=== PATIENT | male | born 1960 | race Caucasian/White ===

== ENCOUNTER → 2016-12-03 | Outpatient (CLI) | payer BC ==
--- NOTE | 2016-12-03 12:36 | ECHOF ---
Referral Reason:I42.9 Cardiomyopathy, unspecified MEASUREMENTS -------- HEIGHT: 185.4 cm WEIGHT: 95.3 kg BP: 150/99 RVIDd: 3.5 cm (< 3.3) IVSd: 1.5 cm (0.6 - 1.1) LVIDd: 5.2 cm (3.9 - 5.3) LVPWd: 1.4 cm (0.6 - 1.1) IVSs: 1.6 cm LVIDs: 4.2 cm LVPWs: 1.5 cm LA Diam: 4.1 cm (2.7 - 3.8) LAESV Index (A-L): 49.70 ml/m Ao Diam: 3.4 cm (2.0 - 3.7) AV Cusp: 2.5 cm (1.5 - 2.6) MV EXCURSION: 22.213 mm (> 18.000) MV EF SLOPE: 205 mm/s (70 - 150) EPSS: 1.0 cm RAP: 5.00 mmHg RVSP: 21.93 mmHg FINDINGS -------- Atrial fibrillation. This was a technically good study. The left ventricular size is normal. There is moderate concentric left ventricular hypertrophy. Overall left ventricular systolic function is severely impaired with, an EF between 25 - 30 %. The right ventricle is mildly enlarged. LA is severely dilated >40 ml/m2 The right atrium is normal in size. The atrial septal defect shunts from left to right. There is mild aortic valve sclerosis. The mitral valve leaflets are mildly thickened. Mild mitral annular calcification present. Mild mitral regurgitation is present. Mild tricuspid regurgitation present. Right ventricular systolic pressure is normal at < 35 mmHg. Trace/mild (physiologic) pulmonic regurgitation. The aortic root size is normal. The inferior vena cava is mildly dilated. The inferior vena cava is dilated with poor inspiratory collapse which is consistent with estimated right atrial pressure of 20 mmHg. The pericardium is normal. CONCLUSIONS -------- 1. Atrial fibrillation. 2. The mitral valve leaflets are mildly thickened. 3. Mild mitral annular calcification present. 4. Mild mitral regurgitation is present. 5. Mild tricuspid regurgitation present. 6. Right ventricular systolic pressure is normal at < 35 mmHg. 7. Trace/mild (physiologic) pulmonic regurgitation. 8. The aortic root size is normal. 9. The inferior vena cava is mildly dilated. 10. The inferior vena cava is dilated with poor inspiratory collapse which is consistent with estimated right atrial pressure of 20 mmHg. 11. The pericardium is normal. 12. This was a technically good study. 13. The left ventricular size is normal. 14. There is moderate concentric left ventricular hypertrophy. 15. Overall left ventricular systolic function is severely impaired with, an EF between 25 - 30 %. 16. The right ventricle is mildly enlarged. 17. LA is severely dilated >40 ml/m2 18. The atrial septal defect shunts from left to right. 19. There is mild aortic valve sclerosis. W[employer] TANK TENDER: Angeline Cheung RDCS
== END | disposition home or self-care (01) ==
LOC: RADECHMAIN 11:12
PROVIDERS: ATTEND Internal Medicine
DX: I48.91 Unspecified atrial fibrillation (principal); I37.1 Nonrheumatic pulmonary valve insufficiency; I51.7 Cardiomegaly; I35.8 Other nonrheumatic aortic valve disorders; Z95.818 Presence of other cardiac implants and grafts
CPT/HCPCS: 93306

== ENCOUNTER 2017-02-15 13:31 | Observation (INO) | payer BC ==
[2017-02-15] MEDS ORDERED: SODIUM CHLORIDE 0.9% 1,000 ML IV STA (13:48)
[2017-02-15] MEDS ORDERED: SODIUM CHLORIDE 0.9% 500 ML IV STA (13:48)
[2017-02-15 14:04] LABS: Basophils # (A) 0.1 k/uL (0-0.2); Basophils % (A) 1 %; CH 32.1; CHCM 32.5; Eosinophils # (A) 0.2 k/uL (0-0.7); Eosinophils % (A) 3 %; HCT 49.8 % (39.0-53.0); HDW 2.29; HGB 16.7 gm/dL (13.0-17.5); Luc # (Auto) 0.23; Luc % (Auto) 3; Lymphocytes # (A) 2.9 k/uL (1.0-4.8); Lymphocytes % (A) 34 %; MCH 33.3 pg (25.0-35.0); MCHC 33.6 g/dL (31.0-37.0); Monocytes # (A) 0.4 k/uL (0-1.0); Monocytes % (A) 5 %; Neutrophils # (A) 4.7 k/uL (1.3-7.7); Neutrophils % (A) 56 %; RBC 5.03 m/uL (4.30-5.90); RDW 13.2 % (11.5-15.5); WBC 8.5 k/uL (3.8-10.6); WBC (Perox) 8.59
--- NOTE | 2017-02-15 14:09 | ED ---
General Adult HPI - General Chief complaint: Recheck/Abnormal Lab/Rx Stated complaint: BP 160/117 Time Seen by Provider: 02/15/17 13:48 Source: patient, RN notes reviewed, old records reviewed Mode of arrival: wheelchair Limitations: no limitations - History of Present Illness Initial comments: This is a 57-year-old male ER for evaluation of not feeling well and I feel self -conscious about an issue for a couple days now. Patient does have high blood pressure has been re-change in his blood pressure medications and his blood pressure still remains uncontrolled. Patient feels kind of weak, denies any chest pain or significant shortness of breath but occasionally does have some shortness of breath, occasional diaphoresis. Symptoms are worse with significant activity. No fevers no cough congestion or travel history, patient does no friends that have had similar issues lately and has had heart attacks. - Related Data Home Medications Medication Instructions Recorded Confirmed Atorvastatin [Lipitor] 20 mg PO HS 09/09/14 09/13/14 Lisinopril [Prinivil] 20 mg PO HS 09/09/14 09/13/14 Metoprolol Tartrate [Lopressor] 50 mg PO BID 09/09/14 09/13/14 Warfarin [Coumadin] 5 mg PO DAILY 09/09/14 09/09/14 Previous Rx's Medication Instructions Recorded HYDROcodone/APAP 7.5-325MG [Phelan 1 each PO Q4H PRN #60 tab 09/13/14 7.5] Allergies Allergy/AdvReac Type Severity Reaction Status Date / Time amoxicillin Allergy Rash/Hives Verified 02/15/17 13:39 Review of Systems ROS Statement: Those systems with pertinent positive or pertinent negative responses have been documented in the HPI. ROS Other: All systems not noted in ROS Statement are negative. Past Medical History Past Medical History: Atrial Flutter, Hyperlipidemia, Hypertension, Seizure Disorder Additional Past Medical History / Comment(s): EPILEPSY (TOOK DILANTIN, LAST SEIZURE AT ABOUT 12 YR). History of Any Multi-Drug Resistant Organisms: None Reported Past Surgical History: Heart Catheterization, Tonsillectomy Additional Past Surgical History / Comment(s): ORIF RIGHT HIP Past Anesthesia/Blood Transfusion Reactions: No Reported Reaction Past Psychological History: Depression Smoking Status: Current every day smoker Past Alcohol Use History: Occasional Past Drug Use History: None Reported - Past Family History Father Family Medical History: Cancer Additional Family Medical History / Comment(s): COLON Mother Family Medical History: Myocardial Infarction ([place]) General Exam Limitations: no limitations General appearance: alert, in no apparent distress Head exam: Present: atraumatic, normocephalic, normal inspection Eye exam: Present: normal appearance, PERRL, EOMI. Absent: scleral icterus, conjunctival injection, periorbital swelling ENT exam: Present: normal exam, mucous membranes moist Neck exam: Present: normal inspection. Absent: tenderness, meningismus, lymphadenopathy Respiratory exam: Present: normal lung sounds bilaterally. Absent: respiratory distress, wheezes, rales, rhonchi, stridor Cardiovascular Exam: Present: regular rate, normal rhythm, normal heart sounds. Absent: systolic murmur, diastolic murmur, rubs, gallop, clicks GI/Abdominal exam: Present: soft, normal bowel sounds. Absent: distended, tenderness, guarding, rebound, rigid Extremities exam: Present: normal inspection, full ROM, normal capillary refill. Absent: tenderness, pedal edema, joint swelling, calf tenderness Back exam: Present: normal inspection Neurological exam: Present: alert, oriented X3, CN II-XII intact Psychiatric exam: Present: normal affect, normal mood Skin exam: Present: warm, dry, intact, normal color. Absent: rash Course Vital Signs 02/15/17 02/15/17 13:36 13:59 Temperature 98.4 F Pulse Rate 109 H 101 H Respiratory 20 18 Rate Blood Pressure 165/107 158/108 O2 Sat by Pulse 100 96 Oximetry - Reevaluation(s) Reevaluation #1: 02/15/17 14:26 Patient is on Coumadin for A. fib with RVR EKG Findings - EKG Comments: EKG Findings:: EKG shows A. fib with RVR rate of 104, QRS 104, QTC 426 Medical Decision Making - Medical Decision Making 57 [place] for evaluation of not feeling well, concerned for heart attack, patient has high blood pressure, will admit for cardiac observation - Lab Data Result diagrams: 02/15/17 13:55 02/15/17 13:55 Lab Results 02/15/17 02/15/17 02/15/17 Range/Units 13:55 13:55 13:55 WBC 8.5 (3.8-10.6) k/uL RBC 5.03 (4.30-5.90) m/uL Hgb 16.7 (13.0-17.5) gm/dL Hct 49.8 (39.0-53.0) % MCV 99.0 (80.0-100.0) fL MCH 33.3 (25.0-35.0) pg MCHC 33.6 (31.0-37.0) g/dL RDW 13.2 (11.5-15.5) % Plt Count 173 (150-450) k/uL Neutrophils % 56 % Lymphocytes % 34 % Monocytes % 5 % Eosinophils % 3 % Basophils % 1 % Neutrophils # 4.7 (1.3-7.7) k/uL Lymphocytes # 2.9 (1.0-4.8) k/uL Monocytes # 0.4 (0-1.0) k/uL Eosinophils # 0.2 (0-0.7) k/uL Basophils # 0.1 (0-0.2) k/uL PT 29.6 H (9.0-12.0) sec INR 3.1 H (<1.2) APTT 31.4 H (22.0-30.0) sec Sodium 140 (137-145) mmol/L Potassium 4.2 (3.5-5.1) mmol/L Chloride 104 (98-107) mmol/L Carbon Dioxide 26 (22-30) mmol/L Anion Gap 10 mmol/L BUN 10 (9-20) mg/dL Creatinine 0.70 (0.66-1.25) mg/dL Est GFR (MDRD) Af Amer >60 (>60 ml/min/1.73 sqM) Est GFR (MDRD) Non-Af >60 (>60 ml/min/1.73 sqM) Glucose 103 H (74-99) mg/dL Calcium 9.4 (8.4-10.2) mg/dL Phosphorus 3.6 (2.5-4.5) mg/dL Magnesium 1.7 (1.6-2.3) mg/dL Total Bilirubin 0.7 (0.2-1.3) mg/dL AST 32 (17-59) U/L ALT 45 (21-72) U/L Alkaline Phosphatase 76 (38-126) U/L Total Protein 6.4 (6.3-8.2) g/dL Albumin 4.1 (3.5-5.0) g/dL - Radiology Data Radiology results: report reviewed (Chest x-ray is negative for acute disease), image reviewed Critical Care Time Critical Care Time: Yes Total Critical Care Time: 31 Disposition Clinical Impression: Atrial fibrillation with RVR, Chest pain Disposition: [facility] Condition: Fair Referrals: Clayton Benites MD [Primary Care Provider] - 1-2 days
[2017-02-15 14:11] LABS: ALT 45 U/L (21-72); AST 32 U/L (17-59); Alkaline Phosphatase 76 U/L (38-126); Anion Gap 10 mmol/L; Blood Urea Nitrogen 10 mg/dL (9-20); Calcium 9.4 mg/dL (8.4-10.2); Carbon Dioxide 26 mmol/L (22-30); Chloride 104 mmol/L (98-107); Glucose 103 mg/dL (74-99); Magnesium 1.7 mg/dL (1.6-2.3); Non-African American GFR(MDRD) >60 (>60 ml/min/1.73 sqM); Phosphorous 3.6 mg/dL (2.5-4.5); Potassium 4.2 mmol/L (3.5-5.1); Sodium 140 mmol/L (137-145); Total Bilirubin 0.7 mg/dL (0.2-1.3); Total Protein 6.4 g/dL (6.3-8.2)
[2017-02-15 14:14] LABS: INR 3.1 (<1.2); Partial Thromboplastin Time 31.4 sec (22.0-30.0); Prothrombin Time 29.6 sec (9.0-12.0)
[2017-02-15] MEDS ORDERED: ASPIRIN 81 MG PO STA (14:26)
[2017-02-15] MEDS ORDERED: NITROGLYCERIN SL TABS 0.4 MG TAB SUBLINGUAL PRN (14:26)
[2017-02-15 14:30] LABS: Creatine Kinase 75 U/L (55-170)
--- NOTE | 2017-02-15 14:35 | XR ---
EXAMINATION TYPE: XR chest 2V DATE OF EXAM: 02/15/2017 COMPARISON: Prior chest x-ray 08/02/2012 HISTORY: Weakness, hypertension TECHNIQUE: Frontal and lateral views of the chest are obtained on 3 images. FINDINGS: There is no focal air space opacity, pleural effusion, or pneumothorax seen. The cardiac silhouette size is within normal limits. There are overlying cardiac leads. There is a spinal curvat ure. Prominent lung volume may be indicative of underlying COPD. The osseous structures are intact. IMPRESSION: No acute cardiopulmonary process.
[2017-02-15 14:43] LABS: Creatine Kinase MB 0.8 ng/mL (0.0-2.4); Troponin I <0.012 ng/mL (0.000-0.034)
[2017-02-15] MEDS ORDERED: amLODIPine 5 MG TAB PO SCH (19:30)
[2017-02-15] MEDS ORDERED: IPRATROPIUM-ALBUTEROL 3 ML NEB INHALATION SCH (20:00)
[2017-02-15 20:09] LABS: Appearance,Urine Clear (Clear); Bilirubin,Urine Negative (Negative); Glucose,Urine (UA) Negative (Negative); Ketones,Urine Negative (Negative); Leukocyte Esterase,Urine Negative (Negative); Nitrite,Urine Negative (Negative); PH, Urine 6.5 (5.0-8.0); Protein,Urine Negative (Negative); Specific Gravity,Urine 1.011 (1.001-1.035); UA Billing (MACRO vs. MICRO) CHEM; Urobilinogen,Urine <2.0 mg/dL (<2.0)
[2017-02-15 20:12] LABS: Creatine Kinase 63 U/L (55-170)
[2017-02-15] MEDS: methylPREDNISolone SOD SUCCI 40 MG/ML 1 ML VIAL IV SCH (20:18)
[2017-02-15] MEDS: LISINOPRIL-HCTZ 20-12.5 MG 1 EACH TAB PO SCH (20:19)
[2017-02-15 20:24] LABS: Creatine Kinase MB 0.8 ng/mL (0.0-2.4); Troponin I <0.012 ng/mL (0.000-0.034)
[2017-02-15] MEDS: BUDESONIDE 1 MG/2 ML NEBU INHALATION SCH (20:51)
[2017-02-15] MEDS: IPRATROPIUM-ALBUTEROL 3 ML NEB INHALATION SCH (20:53)
[2017-02-15] MEDS ORDERED: METOPROLOL TARTRATE 25 MG TAB PO SCH (21:00)
[2017-02-15] MEDS ORDERED: LISINOPRIL 20 MG TAB PO SCH (21:00)
[2017-02-15] MEDS ORDERED: ATORVASTATIN 20 MG TAB PO SCH (21:00)
[2017-02-15] MEDS ORDERED: METOPROLOL TARTRATE 50 MG TAB PO SCH (21:00)
[2017-02-15] MEDS: CARVEDILOL 12.5 MG TAB PO SCH (21:22)
[2017-02-15 23:50] VITALS: RESP 18
[2017-02-16] MEDS: NICOTINE 21MG/24HR PATCH TRANSDERM SCH ×2 (00:50→11:13)
[2017-02-16 02:54] LABS: INR 2.5 (<1.2); Prothrombin Time 23.8 sec (9.0-12.0)
[2017-02-16 03:04] LABS: Cholesterol 127 mg/dL (<200); HDL Cholesterol 63 mg/dL (40-60)
[2017-02-16 03:15] LABS: Creatine Kinase 53 U/L (55-170)
[2017-02-16 03:29] LABS: Creatine Kinase MB 0.8 ng/mL (0.0-2.4); Troponin I <0.012 ng/mL (0.000-0.034)
[2017-02-16] MEDS: methylPREDNISolone SOD SUCCI 40 MG/ML 1 ML VIAL IV SCH (03:59)
--- NOTE | 2017-02-16 07:56 | HP ---
HISTORY AND PHYSICAL DATE OF ADMISSION: February 15, 2017. PRESENTING COMPLAINT: Tired. HISTORY OF PRESENTING COMPLAINT: A very pleasant, 57 -year-old patient of Dr. Benites. Chronic stable medical conditions include hypothyroidism, seizures, history of hypertension also on A. flutter on Coumadin. Presents feeling weak, tired, a bit foggy, tired and run down. Took his blood pressure found blood pressure to be been running high. Decided to come in. The patient easily gets short-winded and gets easily tired. The patient is a smoker. REVIEW OF SYSTEMS: Constitutional: Tired. HEENT none. Respiratory as above. Cardiovascular as above. Gastroenterology: None. Genitourinary: None. MUSCULOSKELETAL: None. Dermatological: None. Hematologic: None. Lymphatics: None. Psychiatry: None. Neurologic: None. PAST HISTORY: Atrial flutter fibrillation, hypertension, hypothyroid, seizures. PAST SURGICAL HISTORY: Cardiac catheterization, tonsillectomy, ORIF on the right hip. 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 Alcohol occasionally. FAMILY HISTORY: Of colon cancer. HOME MEDICATIONS: 1. Coumadin 5 mg q.h.s. 2. Diovan 160 mg p.o. daily. 3. Prinivil 40 mg q.h.s. 4. Vitamin B12 500 mcg p.o. daily, [address] mcg subcu every 30 days. 5. Vitamin D3 2000 units p.o. daily. 6. Coreg 12.5 p.o. b.i.d. 7. Lipitor 20 mg q.h.s. 8. Aspirin 325 p.o. once p.r.n. ALLERGIES: AMOXICILLIN AND PENICILLIN. PHYSICAL EXAMINATION: On examination, temperature 98.4, pulse 109, respirations 20, blood pressure 161/70, pulse ox 100% room air. General appearance sitting up tired appearing. EYES: Pupils equal. Conjunctivae normal. HEENT: Oral cavity normal. Neck: JVD not raised. Mass not palpable. Respiratory: Effort increased. Lungs diminished breath sounds. Prolonged expiration. Cardiovascular heart sounds irregular. No edema. Abdomen is soft, nontender. Liver and spleen not palpable. Lymphatics: No lymphs nodes palpable in the neck and axilla. Psychiatric alert and oriented times three. Mood affect normal. Neurological: Pupils equal. Cranial nerves grossly intact. Power and sensation grossly intact. INVESTIGATIONS: INR 3.1, potassium 4.2. Troponin negative. EKG shows atrial fibrillation, rate 104. Chest x-ray showed prominent pulmonary artery. ASSESSMENT: 1. Persistent atrial fibrillation. Rate slightly uncontrolled may be causing the patient to feel weak. 2. Essential hypertension. Uncontrolled. Present on admission. 3. Chronic obstructive pulmonary disease in a current smoker. 4. Chronic nicotine dependence, patient is a smoker. 5. Atrial flutter fibrillation. 6. Seizure disorder, off any medications. 7. Coumadin monitoring. PLAN: We will increase the patient's Coreg to 25 mg b.i.d. That is both for his blood pressure and rate control. We will add bronchodilators and nebulized steroids, short course of IV steroids. Patient counseled against smoking and given a nicotine patch. Will be followed. Cardiology was consulted. Copy to Dr. Benites. Also the patient is both on DANIEL inhibitor and ARB. Will change the lisinopril hydrochlorothiazide to 20/12.5 twice a day. RABIA the Sherrie. Care was discussed with the patient. Copy to Dr. Benites. MMODL / IJN: [id number] /
[2017-02-16] MEDS ORDERED: ASPIRIN 81 MG PO SCH (09:00)
[2017-02-16] MEDS ORDERED: ASPIRIN 325 MG TAB PO SCH (09:00)
[2017-02-16] MEDS ORDERED: VALSARTAN 160 MG TAB PO SCH (09:00)
[2017-02-16] MEDS: BUDESONIDE 1 MG/2 ML NEBU INHALATION SCH (09:08)
[2017-02-16] MEDS: IPRATROPIUM-ALBUTEROL 3 ML NEB INHALATION SCH ×2 (09:08→12:59)
[2017-02-16] MEDS ORDERED: SPIRONOLACTONE 25 MG TAB PO SCH (10:15)
[2017-02-16] MEDS ORDERED: FUROSEMIDE 10 MG/ML 2 ML VIAL IV ONE (10:30)
[2017-02-16] MEDS: CARVEDILOL 12.5 MG TAB PO SCH (11:13)
[2017-02-16] MEDS: LISINOPRIL-HCTZ 20-12.5 MG 1 EACH TAB PO SCH (11:13)
[2017-02-16 11:40] VITALS: BP 137/77; TEMP 98.5
[2017-02-16] MEDS ORDERED: CYANOCOBALAMIN 500 MCG TAB PO SCH (12:00)
[2017-02-16] MEDS ORDERED: CHOLECALCIFEROL 1,000 UNIT TAB PO SCH (12:00)
[2017-02-16 13:02] VITALS: PULSE 92
--- NOTE | 2017-02-16 13:14 | P.CRDCN ---
History of Present Illness Consult date: 02/16/17 History of present illness: This is a 57-year-old male. Past medical history significant for dyslipidemia, hypertension, nonischemic cardiomyopathy, atrial fibrillation on chronic anticoagulation and seizures. Patient presents with complaints of increased weakness, and dyspnea on exertion, increased fatigue and elevated blood pressure. He saw Dr. Garduno in the office last in September 2013. He states he follows with his PCP Dr. Benites and he adjusts his medications. His last visit with Dr. Garduno he was put on digoxin and metoprolol for rate control. He states they stopped those medications due to intolerance. EKG done shows atrial fibrillation, rate of 104 beats per minute. There is no old EKG for comparison available at this time. CBC was within normal limits, BMP stable, troponins negative x3, pro-BNP 545. Chest x-ray showed no acute cardiopulmonary process, no congestion. Most recent echo dated 12/03/2016 done as an outpatient per Dr. Benites indicates severely impaired LV function with ejection fraction of 25-30%, moderate left ventricular hypertrophy, mildly enlarged right ventricle, severely dilated left atrium, atrial septal defect shunts left to right and mild aortic valve sclerosis. Review of Systems REVIEW OF SYSTEMS: Patient denies any chest discomfort. No shortness of breath. No diaphoresis. Denies headache, dizziness, blurred vision, double vision. Complains of dyspnea on exertion. Patient denies any stomach discomfort. No nausea, vomiting. No hematochezia. No hematemesis. Denies any black stools or blood in his stools. No syncope. No palpitations. No cough. No recent fever or chills. No muscle weakness or numbness. Past Medical History Past Medical History: Atrial Flutter, Hyperlipidemia, Hypertension, Osteoarthritis (OA), Seizure Disorder Additional Past Medical History / Comment(s): EPILEPSY (TOOK DILANTIN, LAST SEIZURE 40 YERS AGO. DIVERTICULITIS, "IRREGULARTIY TO BOWELS", UPPER FRONT BRIDGE. "OCC HEADACHES" History of Any Multi-Drug Resistant Organisms: None Reported Past Surgical History: Heart Catheterization, Tonsillectomy Additional Past Surgical History / Comment(s): ORIF RIGHT HIP, COLONOSCOPY, HEMORROIDECTOMY, SX FOR UNDESCENDED TESTICLE. Past Anesthesia/Blood Transfusion Reactions: No Reported Reaction Smoking Status: Current every day smoker - Past Family History Father Family Medical History: Cancer Additional Family Medical History / Comment(s): COLON Mother Family Medical History: Myocardial Infarction ([place]) Medications and Allergies Home Medications Medication Instructions Recorded Confirmed Type Atorvastatin [Lipitor] 20 mg PO HS 09/09/14 02/15/17 History Lisinopril [Prinivil] 20 mg PO HS 09/09/14 02/15/17 History Warfarin [Coumadin] 5 mg PO HS 09/09/14 02/15/17 History Aspirin 325 mg PO ONCE PRN 02/15/17 02/15/17 History Carvedilol [Coreg] 12.5 mg PO BID 02/15/17 02/15/17 History Cholecalciferol (Vitamin D3) 2,000 unit PO DAILY 02/15/17 02/15/17 History [Vitamin D3] Cyanocobalamin [Vitamin B-12 1,000 mcg SQ Q30D 02/15/17 02/15/17 History Injection] Cyanocobalamin [Vitamin B-12] 500 mcg PO DAILY 02/15/17 02/15/17 History Valsartan [Diovan] 160 mg PO DAILY 02/15/17 02/15/17 History Allergies Allergy/AdvReac Type Severity Reaction Status Date / Time amoxicillin Allergy Rash/Hives Verified 02/15/17 20:17 Penicillins Allergy Rash/Hives Verified 02/15/17 20:17 Physical Exam Vitals: Vital Signs Temp Pulse Pulse Pulse Resp BP BP 02/16/17 07:56 97.5 F L 72 18 02/16/17 03:49 98.5 F 96 18 119/86 02/15/17 23:49 98.7 F 74 18 131/85 02/15/17 21:05 80 02/15/17 20:53 81 02/15/17 20:10 95 17 02/15/17 19:49 98.9 F 74 18 145/93 02/15/17 16:00 14 02/15/17 15:07 98.5 F 86 18 146/98 02/15/17 14:51 90 02/15/17 14:45 92 18 160/92 02/15/17 13:59 101 H 18 158/108 02/15/17 13:36 98.4 F 109 H 20 165/107 BP Pulse Ox 02/16/17 07:56 130/83 94 L 02/16/17 03:49 94 L 02/15/17 23:49 99 02/15/17 21:05 02/15/17 20:53 02/15/17 20:10 02/15/17 19:49 95 02/15/17 16:00 02/15/17 15:07 95 02/15/17 14:51 02/15/17 14:45 95 02/15/17 13:59 96 02/15/17 13:36 100 Intake and Output 02/15/17 02/16/17 02/16/17 22:59 06:59 14:59 Intake Total 360 Balance 360 Intake: Oral 360 Other: Voiding Method Toilet GENERAL: This is a 57-year-old pleasant male in no apparent distress at the time of my examination. HEENT: Head is atraumatic, normocephalic. Pupils are equal, round. Sclerae anicteric. Conjunctivae are clear. Mucous membranes of the mouth are moist. Neck is supple. There is moderate jugular venous distention. No carotid bruit is heard. LUNGS: Faint rales bibasilar. No wheezes or rhonchi. No chest wall tenderness is noted on palpation or with deep breathing. HEART: Regular rate and rhythm without murmurs, rubs or gallops. S1 and S2 heard. ABDOMEN: Soft, nontender. Bowel sounds are heard. No organomegaly noted. EXTREMITIES: 2+ peripheral pulses with no evidence of peripheral edema and no calf tenderness noted. NEUROLOGIC: Patient is awake, alert and oriented x3. Results 02/15/17 13:55 02/15/17 13:55 Cardiac Enzymes 02/15/17 02/15/17 02/15/17 Range/Units 13:55 13:55 19:42 AST 32 (17-59) U/L CK-MB (CK-2) 0.8 0.8 (0.0-2.4) ng/mL Troponin I <0.012 <0.012 (0.000-0.034) ng/mL 02/16/17 Range/Units 02:19 AST (17-59) U/L CK-MB (CK-2) 0.8 (0.0-2.4) ng/mL Troponin I <0.012 (0.000-0.034) ng/mL Coagulation 02/15/17 02/16/17 Range/Units 13:55 02:19 PT 29.6 H 23.8 H (9.0-12.0) sec APTT 31.4 H (22.0-30.0) sec Lipids 02/16/17 Range/Units 02:19 Triglycerides 62 (<150) mg/dL Cholesterol 127 (<200) mg/dL HDL Cholesterol 63 H (40-60) mg/dL CBC 02/15/17 Range/Units 13:55 WBC 8.5 (3.8-10.6) k/uL RBC 5.03 (4.30-5.90) m/uL Hgb 16.7 (13.0-17.5) gm/dL Hct 49.8 (39.0-53.0) % Plt Count 173 (150-450) k/uL Comprehensive Metabolic Panel 02/15/17 Range/Units 13:55 Sodium 140 (137-145) mmol/L Potassium 4.2 (3.5-5.1) mmol/L Chloride 104 (98-107) mmol/L Carbon Dioxide 26 (22-30) mmol/L BUN 10 (9-20) mg/dL Creatinine 0.70 (0.66-1.25) mg/dL Glucose 103 H (74-99) mg/dL Calcium 9.4 (8.4-10.2) mg/dL AST 32 (17-59) U/L ALT 45 (21-72) U/L Alkaline Phosphatase 76 (38-126) U/L Total Protein 6.4 (6.3-8.2) g/dL Albumin 4.1 (3.5-5.0) g/dL Current Medications Generic Name Dose Route Start Last Admin Trade Name Freq PRN Reason Stop Dose Admin Albuterol/Ipratropium 3 ml 02/15/17 20:00 02/15/17 20:53 Duoneb 0.5 Mg-3 Mg/3 Ml Soln INHALATION 3 ml RT-QID LIEN Administration Aspirin 81 mg 02/16/17 09:00 Aspirin PO DAILY [facility] Atorvastatin Calcium 20 mg 02/15/17 21:00 02/15/17 20:23 Lipitor PO 20 mg HS LIEN Administration Budesonide 1 mg 02/15/17 20:00 02/15/17 20:51 Pulmicort INHALATION 1 mg RT-BID LIEN Administration Carvedilol 25 mg 02/15/17 19:45 02/15/17 21:22 Coreg PO 25 mg BID-W/MEALS LIEN Administration Cholecalciferol 2,000 unit 02/16/17 12:00 Vitamin D3 PO 1200 LIEN Cyanocobalamin 500 mcg 02/16/17 12:00 Vitamin B-12 PO 1200 LIEN Lisinopril/HCTZ 1 each 02/15/17 21:00 02/15/17 20:19 Zestoretic 20-12.5 PO 1 each BID LIEN Administration Methylprednisolone Sodium Succinate 40 mg 02/15/17 20:00 02/16/17 03:59 Solu-Medrol IV 40 mg Q8H LIEN Administration Nicotine 1 patch 02/15/17 19:15 02/16/17 00:50 Habitrol 21mg/24hr Patch TRANSDERM Not Given DAILY [facility] Nitroglycerin 0.4 mg 02/15/17 14:26 Nitrostat SUBLINGUAL Q5M PRN Chest Pain Warfarin Sodium 5 mg 02/16/17 21:00 Coumadin PO HS LIEN Intake and Output 02/15/17 02/16/17 02/16/17 22:59 06:59 14:59 Intake Total 360 Balance 360 Intake: Oral 360 Other: Voiding Method Toilet 02/15/17 13:55 02/15/17 13:55 EKG Interpretations (text) EKG indicated atrial fibrillation. Assessment and Plan Plan: ASSESSMENT 1. 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 Non-ischemic cardiomyopathy 3. Acute on chronic systolic heart failure 4. Essential hypertension 5. Dyslipidemia 6. Chronic tobacco abuse PLAN Add digoxin 125 mcg PO daily, aldactone 25 mg PO daily and one time dose of lasix 10 mg IVP now. The patient has been updated on the plan of care and he has verbalized understanding. Compliance and follow up is imperative. He is to see Dr. Garduno in the office next week. Smoking cessation has been discussed at length. He is stable for discharge home with addition of these new medications. Thank you kindly for this consultation. Nurse Practitioner note has been reviewed, I agree with a documented findings and plan of care. Patient was seen and examined.
[2017-02-16] MEDS ORDERED: WARFARIN 5 MG TAB PO SCH (21:00)
[2017-02-17] MEDS ORDERED: DIGOXIN 125 MCG TAB PO SCH (09:00)
--- NOTE | 2017-02-17 13:59 | DS ---
DISCHARGE SUMMARY DATE OF ADMISSION: 02/15/2017 DATE OF DISCHARGE: 02/16/2017 FINAL DIAGNOSIS: 1. Persistent atrial fibrillation uncontrolled on admission causing patient to be asymptomatic. 2. Essential hypertension with urgency, present on admission. 3. Chronic obstructive pulmonary disease in a current smoker. 4. Chronic nicotine dependence. Patient is a smoker. 5. Persistent atrial flutter fibrillation both as #1. 6. Seizure disorder, not on any medications. 7. Coumadin monitoring. CONSULTATION: Dr. Mert Barahona from cardiology. HOSPITAL COURSE: This patient presented not feeling well. Found to have elevated blood pressure uncontrolled, atrial flutter fibrillation. Medications were adjusted. The patient's blood pressure was 137/77 at the time of discharge. Heart rate controlled now in the 90s. Patient counseled for smoking. INR is 2.5. Troponin's were negative. LDL is 52. PHYSICAL EXAMINATION: LUNGS: Decreased breath sounds. CARDIOVASCULAR: Heart sounds irregular. DISCHARGE MEDICATIONS: 1. Lipitor 20 mg q.h.s. 2. Coumadin 5 mg p.o. q.h.s. 3. Vitamin D3, 2000 units p.o. daily. 4. Vitamin B12, 1000 mcg subcutaneous every 30 days, and 500 mcg p.o. daily. 5. Ventolin HFA 1 or 2 puffs q.6 p.r.n. 6. Aspirin 81 mg a day. 7. Coreg 25 mg p.o. b.i.d., new dose. 8. Digoxin 125 mcg p.o. daily, new medications. 9. Atrovent HFA 2 puffs q.i.d., new medication. 10.Zestoretic 01/06.5 one tablet p.o. b.i.d., new dose. 11.Nicotine patch. 12.Aldactone 25 mg a day, new medication. Follow up with Dr. Garduno on 02/18/17. Follow up with Dr. Benites in 3 days. MMODL / IJN: [id number] /
== END 2017-02-16 16:05 | disposition home or self-care (01) ==
LOC: EC 13:31 → 3OBS 14:26
PROVIDERS: ADMIT Hospitalist; ATTEND Hospitalist
DX: I48.1 Persistent atrial fibrillation (principal); I48.2 Chronic atrial fibrillation; E78.5 Hyperlipidemia, unspecified; I42.9 Cardiomyopathy, unspecified; I48.92 Unspecified atrial flutter; I11.0 Hypertensive heart disease with heart failure; J44.9 Chronic obstructive pulmonary disease, unspecified; G40.909 Epilepsy, unspecified, not intractable, without status epilepticus; I50.23 Acute on chronic systolic (congestive) heart failure; Z79.01 Long term (current) use of anticoagulants; F17.200 Nicotine dependence, unspecified, uncomplicated; Z79.899 Other long term (current) drug therapy; Z88.0 Allergy status to penicillin; Z82.49 Family history of ischemic heart disease and other diseases of the circulatory system; Z80.0 Family history of malignant neoplasm of digestive organs; R61 Generalized hyperhidrosis; F32.9 Major depressive disorder, single episode, unspecified
CPT/HCPCS: 99291; 96361 ×4; 96374; 96375; 96376; 36415; 94640 ×3; 93005; 83880; 80061; 80053; 82550 ×2; 82553 ×2; 83735; 84100; 84484 ×2; 85025; 85610 ×2; 85730; 81003; 87086; 71020; G0378 ×2; S4990; J1940; J2920 ×2

== ENCOUNTER 2018-06-19 13:24 | Day surgery (SDC) | payer BC, OTHER ==
[2018-06-07 16:16] VITALS: BMI 29.4
[~2018-06-19 13:24] MED LIST: CLINDAMYCIN 600 MG in SODIUM CHLORIDE 0.9% IRRIGATIO 250 ML IRRIGATION ONE; CLINDAMYCIN 900 MG in DEXTROSE 5% IN WATER 50 ML IVPB ONE; LACTATED RINGERS 1,000 ML IV SCH; LIDOCAINE 1% 20 ML VIAL (10MG/ML) FOR IV START INTRADERMA PRN; SODIUM CHLORIDE 0.9% 1,000 ML IV SCH
[2018-06-19 15:21] LABS: Basophils % (A) 0 %; Eosinophils # (A) 0.3 k/uL (0-0.7); Eosinophils % (A) 4 %; HCT 45.3 % (39.0-53.0); Lymphocytes # (A) 2.5 k/uL (1.0-4.8); Lymphocytes % (A) 37 %; MCHC 33.2 g/dL (31.0-37.0); MCV 99.3 fL (80.0-100.0); Monocytes # (A) 0.4 k/uL (0-1.0); Monocytes % (A) 6 %; Neutrophils # (A) 3.4 k/uL (1.3-7.7); Neutrophils % (A) 50 %; Platelet Count 155 k/uL (150-450); RBC 4.56 m/uL (4.30-5.90); RDW 13.1 % (11.5-15.5); WBC 6.8 k/uL (3.8-10.6)
[2018-06-19 15:28] LABS: INR 1.3 (<1.2); Prothrombin Time 13.3 sec (9.0-12.0)
[2018-06-19] MEDS ORDERED: fentaNYL (PF) 50 MCG/ML 2 ML AMP ONE (16:04)
[2018-06-19] MEDS ORDERED: MIDAZOLAM 2 MG/2 ML VIAL ONE (16:04)
[2018-06-19] MEDS ORDERED: IV FLUID CONTINUATION 400 ML IV ONE (16:08)
[2018-06-19] MEDS ORDERED: IOPAMIDOL-250 100ML BTL IV ONE (16:21)
[2018-06-19] MEDS ORDERED: LIDOCAINE 1% INJ 10MG/ML (20 ML MDV) ONE ×2 (16:23)
[2018-06-19] MEDS ORDERED: LIDOCAINE 1% INJ 10MG/ML (20 ML MDV) SQ ONE (16:46)
[2018-06-19] MEDS ORDERED: LACTATED RINGERS 1,000 ML IV ONE (16:54)
[2018-06-19] MEDS ORDERED: ACETAMINOPHEN IV (For NPO) 1,000 MG in EMPTY BAG 1 BAG IVPB ONE (18:06)
[2018-06-19] MEDS ORDERED: ACETAMINOPHEN TAB 325 MG TAB PO PRN (18:06)
[2018-06-19] MEDS ORDERED: IPRATROPIUM 0.5 MG/2.5 ML NEBU INHALATION PRN (18:08)
[2018-06-19] MEDS: ATORVASTATIN 20 MG TAB PO SCH (21:03)
[2018-06-19] MEDS: LOSARTAN 25 MG TAB PO SCH (21:03)
[2018-06-19] MEDS ORDERED: MORPHINE SULFATE 2 MG/ML SYRINGE IV PRN (21:27)
[2018-06-19] MEDS: WARFARIN 5 MG TAB PO SCH (21:28)
[2018-06-19] MEDS ORDERED: LACTATED RINGERS 1,000 ML IV SCH (21:30)
[2018-06-19] MEDS: HYDROcodone/APAP 5-325MG 1 EACH TAB PO PRN (21:31)
[2018-06-19] MEDS: CLINDAMYCIN 900 MG in DEXTROSE 5% IN WATER 50 ML IVPB SCH ×2 (22:53)
[2018-06-19] MEDS ORDERED: CLINDAMYCIN 900 MG in DEXTROSE 5% IN WATER 50 ML IVPB SCH ×2 (23:00)
[2018-06-20] MEDS: SODIUM CHLORIDE 0.9% 1,000 ML IV SCH (00:15)
[2018-06-20] MEDS: CLINDAMYCIN 900 MG in DEXTROSE 5% IN WATER 50 ML IVPB SCH ×6 (04:22→16:09)
[2018-06-20] MEDS: HYDROcodone/APAP 5-325MG 1 EACH TAB PO PRN ×2 (04:35→13:45)
--- NOTE | 2018-06-20 04:38 | PCN ---
PROCEDURE NOTE Dandre Sanz is a 58-year-old male patient who has nonischemic cardiomyopathy with atrial fibrillation with RVR. He has been refractory to rate controlled medications even at high doses. During the day, his heart rates can go up to 200 beats per minute and at night he has severe bradycardia on account of medications. In view of his tachycardia and intermediate cardiomyopathy, permanent pacemaker followed by AV node ablation was advised. DESCRIPTION OF PROCEDURE: The patient was brought to the EP lab in a fasting state. Written informed consent was obtained prior to the procedure. The left shoulder area was prepped and draped as per protocol. 1% lidocaine was used for local anesthesia. A 4 cm incision made parallel to the deltopectoral groove, about 1.5 cm medial to it. The incision was carried down to the level of the pectoralis muscle. A subfascial pocket was made. Hemostasis was assured. The left axillary vein was accessed at 2 separate points under fluoroscopy and via appropriately-sized introducer sheaths were placed in the right heart. Since the patient had cardiomyopathy and a single coil ICD lead, DF1-lead was placed in the RV apex. Current VG protocol was followed. This was later connected to a pacemaker and the DF pin was capped and secured to the underlying pectoralis muscle. This was a Medtronic model #6935, 65 cm in length and serial number [id number]. This was positioned in the RV apex. The R-waves were 10.3 mV. Pacing threshold 0.6 V at 0.5 milliseconds. Pacing impedance of 302 ohms. 10 V test negative. The His bundle lead was placed, His bundle lead was 1st attempted in view of an LV lead. The original plan was either His bundle pacing or LV pacing to avoid 100% RV pacing. The patient's bundle lead was screwed in the His bundle area and excellent thresholds were obtained. Selective pacing was noted at 5 V at 1 millisecond with a narrow QRS of 99 milliseconds. He has an underlying right bundle branch block. Pacing His bundle narrowed to QRS width. At 3.75 V his intrinsic QRS widening to a right bundle branch, incomplete right bundle branch block type with a QRS width of 118 milliseconds and loss of His bundle capture occurred at 0.7 V at 1 millisecond. The leads were then secured to the underlying pectoralis fascia using 2 nonabsorbable sutures. The leads were connected to the new generator. The His bundle lead which is a Medtronic model #3830, 69 cm in length and serial number [id number] was plugged in the atrial port of the dual-chamber pacemaker. The RV lead was plugged to the RV port. This was a Medtronic dual-chamber pacemaker [place] SDR MRI serial number [id number]. The leads and generator were then placed in subfascial pocket. The wound was closed in 3 layers and dressed per protocol. RESULTS: Successful implantation of permanent pacemaker with His bundle and RV apical pacing. The device was programmed to DDDR mode with an AV delay of 80 milliseconds with His bundle lead plugged into the atrial port to maximize His bundle pacing and minimize RV pacing to avoid further cardiomyopathy. PLAN: If his chest x-ray is within normal limits and his thresholds are excellent, then we will proceed with AV junction modification tomorrow for management of atrial fibrillation with RVR and thereafter switch to carvedilol and provide continuous His bundle pacing. Hopefully this will result in improvement in his LV function, which is about 45% ejection fraction at this time. MMODL / IJN: [id number] /
[2018-06-20 07:36] VITALS: RESP 18
--- NOTE | 2018-06-20 07:59 | P.PN ---
Subjective Principal diagnosis: Patient is doing well. He is lying comfortably in bed. No chest discomfort dizziness lightheadedness or palpitations after permanent pacemaker implantation yesterday Vitals are stable blood pressure 118/82 mmHg afebrile 97.5F pulse rate 73 beats a minute at rest irregular Breath sounds are clear no rhonchi no crackles Heart sounds S1 and S2 are normal but irregular Abdomen soft nontender Pacemaker site is healed well his minimal soakage no hematoma Impression Atrial fibrillation with tachybradycardia syndrome refractory to drug therapy Permanent pacemaker implanted yesterday with His bundle pacing with the future plan of AV junction modification for management of atrial fibrillation Continue anticoagulation Objective - Vital Signs Vital signs: Vital Signs Temp 97.5 F L 06/20/18 07:35 Pulse 73 06/20/18 07:35 Resp 18 06/20/18 07:35 BP 118/82 06/20/18 07:35 Pulse Ox 92 L 06/20/18 07:35 Intake & Output 06/19/18 06/20/18 06/20/18 18:59 06:59 18:59 Intake Total 556 Balance 556 Weight 101.151 kg Intake: IV 556 Other: Voiding Method Toilet # Voids 2 - Labs CBC & Chem 7: 06/19/18 15:17 Labs: Abnormal Lab Results - Last 24 Hours (Table) 06/19/18 Range/Units 14:59 PT 13.3 H (9.0-12.0) sec INR 1.3 H (<1.2)
--- NOTE | 2018-06-20 08:52 | XR ---
EXAMINATION TYPE: XR chest 2V DATE OF EXAM: 06/20/2018 COMPARISON: 02/15/2017 HISTORY: 58-year-old male placement check TECHNIQUE: PA and lateral views FINDINGS: Heart upper limits of normal in size. Aorta and pulmonary vasculature within normal limits. There is some strandy atelectasis or scarring at the left lower lung. Some focal patchy density at the right b ase represents superimposition shadow. Left anterior chest wall AICD generator with right atrial and right ventricular leads. No consolidation or sizable effusion otherwise seen. IMPRESSION: 1. Left-sided AICD generator with right atrial and right ventricular leads. 2. Borderline cardiomegaly and suspected underlying COPD. 3. Some focal patchy density at the right base could represent superimposition shadow, atelectasis, o r early infiltrate. Attention on follow-up.
[2018-06-20] MEDS: METOPROLOL TARTRATE 50 MG TAB PO SCH (09:51)
[2018-06-20] MEDS: SPIRONOLACTONE 25 MG TAB PO SCH (09:51)
[2018-06-20] MEDS: ASPIRIN 81 MG PO SCH (09:54)
[2018-06-20] MEDS ORDERED: fentaNYL (PF) 50 MCG/ML 2 ML AMP ONE (12:11)
[2018-06-20] MEDS ORDERED: SODIUM CHLORIDE 0.9% 500 ML 500 ML IV ONE (12:21)
[2018-06-20] MEDS ORDERED: MIDAZOLAM 2 MG/2 ML VIAL IVP ONE (12:21)
[2018-06-20] MEDS ORDERED: fentaNYL (PF) 50 MCG/ML 2 ML AMP IV ONE (12:21)
[2018-06-20] MEDS ORDERED: HEPARIN SODIUM (1,000 UNIT/ML) 1,000 UNIT in SODIUM CHLORIDE 0.9% 1,000 ML IRRIGATION ONE (12:21)
[2018-06-20] MEDS ORDERED: LIDOCAINE 1% INJ 10MG/ML (20 ML MDV) SQ ONE (12:29)
[2018-06-20] MEDS ORDERED: ATROPINE SULFATE 0.1 MG/ML 10ML SYRINGE IV ONE (12:48)
--- NOTE | 2018-06-20 13:10 | P.PCN ---
Preoperative Diagnosis: Procedure: Device interrogation with reprogramming prior to the procedure AV Node Ablation/modification. Device interrogation with reprogramming postprocedure Patient was brought to the EP lab in a fasting state. Written, informed consent was obtained prior to the procedure. Access was obtained, sheath placed in right femoral vein. 1. Preprocedure device interrogation and reprogramming Device interrogation with reprogramming performed. Excellent artery and His bundle pacemaker lead thresholds. Selective pacing and His bundle lead. Rate responsiveness was turned off and the pacing rate was reprogrammed to a backup mode prior to ablation. Tachycardia detections turned off. Lead impedance is documented, sensing and pacing thresholds performed prior to the procedure Backup pacing, VVI 40 bpm 3. AV node ablation A Mapping/Ablation catheter was placed and right-sided AV node radiofrequency ablation/modification was performed. Complete heart block was achieved with occasional junctional escape rhythm above 40 bpm 4. Device programming postprocedure Post ablation, device reprogramming was performed. Base Pacing rate was programmed to 90 bpm. lead impedances and thresholds stable excellent thresholds Patient's device was reprogrammed and the interrogated. RF mode turned on Vascular sheaths were removed at the end of the procedure, hemostasis was assured, the patient was then transferred to recovery room/telemetry in stable condition. Conclusions: Successful ablation of the AV node. Plan: Pacing at 90 bpm for 3 weeks. DDDR 90-110 Telemetry monitoring for 24-48 hours. Continue anticoagulation. Continue cardiac medications Patient tolerated the procedure well without any acute complications Conscious sedation Patient underwent EP procedure under conscious sedation/moderate sedation, monitoring of the level of consciousness and physiologic parameters including but not limited to vital signs and oxygenation. Patient tolerated the procedure well without any acute complications. Start time: 1229 Stop time: 1251
[2018-06-20 15:33] LABS: Appearance,Urine Clear (Clear); Bilirubin,Urine Negative (Negative); Blood,Urine Large (Negative); Color,Urine Yellow; Glucose,Urine (UA) Negative (Negative); Ketones,Urine Negative (Negative); Leukocyte Esterase,Urine Negative (Negative); Mucus,Urine Rare /hpf; Nitrite,Urine Negative (Negative); PH, Urine 6.5 (5.0-8.0); Protein,Urine Trace (Negative); RBC,Urine >182 /hpf (0-5); Specific Gravity,Urine 1.016 (1.001-1.035); Urobilinogen,Urine <2.0 mg/dL (<2.0); WBC,Urine 8 /hpf (0-5)
[2018-06-20] MEDS: BISACODYL 5 MG TABLET.DR PO SCH (16:10)
[2018-06-20] MEDS: LOSARTAN 25 MG TAB PO SCH (21:06)
[2018-06-20] MEDS: ATORVASTATIN 20 MG TAB PO SCH (21:06)
[2018-06-20] MEDS: WARFARIN 5 MG TAB PO SCH (21:06)
[2018-06-21 07:42] VITALS: BP 143/97; PULSE 89; TEMP 97.5
--- NOTE | 2018-06-21 08:21 | P.DS ---
Providers Attending physician: David Garduno Primary care physician: [facility] Course: Dandre is doing well. His belly feels a lot better did he has no tenderness in his abdomen. No chest discomfort dizziness or lightheadedness The pacemaker site is healed well there is no hematoma minimal soakage His groin is healed well there is no hematoma no swelling, minimal tenderness On examination heart sounds S1 and S2 are normal and regular Breath sounds are clear no rhonchi no crackles Abdomen soft nontender No lower extremity edema No JVD Vitals are stable blood pressure 130/86. His mercury afebrile 97 0.6F respirations normal pulse rate 90 beats a minute Impression Nonischemic cardio myopathy Atrial fibrillation with RVR during the daytime during ambulation and significant bradycardia at rest, refractory to high-dose beta blockers Tachybradycardia syndrome Hypertension Status post permanent pacemaker implantation His bundle pacing to avoid RV pacing AV junction modification with a residual junctional rate of 50 beats a minute narrow QRS post modification Suggest Continue all home medications including anticoagulation continue cardio myopathy medications including beta blockers Follow-up in the device clinic in 5 days for a device site check in interrogation Follow-up in the device clinic in 3 weeks for pacemaker re- programming Follow-up with Dr. Reyes in 4 months Post pacemaker instructions given Patient Condition at Discharge: Stable Plan - Discharge Summary Discharge Rx Participant: No New Discharge Prescriptions: No Action Warfarin [Coumadin] 5 mg PO HS Atorvastatin [Lipitor] 20 mg PO HS Cyanocobalamin [Vitamin B-12] 500 mcg PO DAILY Cholecalciferol (Vitamin D3) [Vitamin D3] 2,000 unit PO DAILY Spironolactone [Aldactone] 25 mg PO DAILY #30 tab Albuterol Inhaler [Ventolin Hfa Inhaler] 1 - 2 puff INHALATION Q6HR PRN #1 inhaler PRN Reason: Wheezing Aspirin 81 mg PO DAILY Metoprolol Tartrate [Lopressor] 200 mg PO QAM Losartan [Cozaar] 25 mg PO HS Ipratropium [place] [Atrovent Hfa] 2 puff INHALATION QID PRN PRN Reason: Dyspnea Discharge Medication List Atorvastatin [Lipitor] 20 mg PO HS 09/09/14 [History] Warfarin [Coumadin] 5 mg PO HS 09/09/14 [History] Cholecalciferol (Vitamin D3) [Vitamin D3] 2,000 unit PO DAILY 02/15/17 [History] Cyanocobalamin [Vitamin B-12] 500 mcg PO DAILY 02/15/17 [History] Albuterol Inhaler [Ventolin Hfa Inhaler] 1 - 2 puff INHALATION Q6HR PRN #1 inhaler 02/16/17 [Rx] Aspirin 81 mg PO DAILY 02/16/17 [Rx] Spironolactone [Aldactone] 25 mg PO DAILY #30 tab 02/16/17 [Rx] Ipratropium [place] [Atrovent Hfa] 2 puff INHALATION QID PRN 06/08/18 [History] Losartan [Cozaar] 25 mg PO HS 06/08/18 [History] Metoprolol Tartrate [Lopressor] 200 mg PO QAM 06/08/18 [History] Follow up Appointment(s)/Referral(s): David Garduno MD [STAFF PHYSICIAN] - 1 Week (Device clinic follow-up in 5 days with Marianne specifically. Please make this appointment Device clinic follow-up once again in 3 weeks with Marianne specifically. This appointment has been made by me Follow-up with Dr. Reyes in 3 months) Activity/Diet/Wound Care/Special Instructions: PATIENT EDUCATION MATERIAL Instructions following a heart rhythm device implant. 1. Keep dressing DRY for 5 DAYS. You may cover the area with Saran or Cling Wrap, prior to a shower. 2. The dressing will be removed in the Device Clinic at [facility]. Absorbable sutures were used to close the wound. 3. Avoid raising the left arm above the shoulder level. 4 week restriction 4. Avoid arm movements, like backscratching, rubbing the head, or pulling on a cord. 4 weeks restriction 5. Gentle range of motion movements of the shoulder, closest to the incision should be performed to avoid a frozen shoulder. (Pendulum exercises of the shoulder) 6. The opposite arm may be used freely. 7. Avoid driving for 7 days. 8. Avoid activities such as golfing, swimming, weed whacking, lifting more than 10 pounds weight, bowling, gymnastics and weight training/lifting. (6 weeks restriction) 9. Activities such as wood chopping with an axe, pull-ups in the gymnasium, power lifting, arc-welding, being close to home induction cooktops will always be a problem. 10. Arm sling is only a reminder not to raise the arm above the head. You do not need to keep the arm completely immobilized. Your free to move the arm and use it and for normal activities. In case of any problems, please call [facility], [place], @ [phone], Attention: Device Clinic Device clinic follow-up in 5 days Follow-up with primary tester printed circuit boards in 2-3 months Discharge Disposition: HOME SELF-CARE
[2018-06-21] MEDS: SODIUM CHLORIDE 0.9% 1,000 ML IV SCH (09:27)
[2018-06-21] MEDS: BISACODYL 5 MG TABLET.DR PO SCH (09:27)
[2018-06-21] MEDS: ASPIRIN 81 MG PO SCH (09:27)
[2018-06-21] MEDS: METOPROLOL TARTRATE 50 MG TAB PO SCH (09:27)
[2018-06-21] MEDS: SPIRONOLACTONE 25 MG TAB PO SCH (09:27)
== END 2018-06-21 11:46 | disposition home or self-care (01) ==
LOC: CATHEP 13:24 → 1SOBS 18:04 → CATHEP 06-21 11:46
PROVIDERS: ATTEND Internal Medicine Clinical Cardiac Electrophysiology
DX: I42.8 Other cardiomyopathies (principal); I49.5 Sick sinus syndrome; I48.91 Unspecified atrial fibrillation; Z79.01 Long term (current) use of anticoagulants; Z79.82 Long term (current) use of aspirin; Z79.899 Other long term (current) drug therapy; R06.00 Dyspnea, unspecified
CPT/HCPCS: 94640; 33208; 93650; 85025; 85610; 81001; 71046; C1769 ×5; C1894; C1892; C1730; C1898; C1895; C1893; C1732; C1785; J2250; J2001 ×2; J0461; J3010; J1644; Q9966

== ENCOUNTER → 2018-10-31 | Outpatient (CLI) | payer OTHER | LOC: CPPFTMAIN 10:09 | PROVIDERS: ATTEND Internal Medicine | DX: J43.9 Emphysema, unspecified (principal) | CPT/HCPCS: 94060; 94726; 94729 ==

== ENCOUNTER → 2019-03-06 | Outpatient (CLI) | payer OTHER ==
--- NOTE | 2019-03-06 14:11 | US ---
EXAMINATION TYPE: US venous doppler duplex LE LT DATE OF EXAM: 03/06/2019 1:41 PM COMPARISON: NONE CLINICAL HISTORY: M79.662 pain in left lower leg. SIDE PERFORMED: Left TECHNIQUE: The lower extremity deep venous system is examined utilizing real time linear array sonog lazaro with graded compression, doppler sonography and color-flow sonography. VESSELS IMAGED: External Iliac Vein (EIV) Common Femoral Vein Deep Femoral Vein Greater Saphenous Vein * Femoral Vein Popliteal Vein Small Saphenous Vein * Proximal Calf Veins (* superficial vessels) Grayscale, color doppler, spectral doppler imaging performed of the deep veins of the left lower extr emity. There is normal flow, compressibility, vascular waveforms. Left Leg: Negative for DVT IMPRESSION: No sonographic evidence of deep venous arthrosis within the left lower extremity.
== END | disposition home or self-care (01) ==
LOC: RADUSWWP 13:14
PROVIDERS: ATTEND Internal Medicine
DX: M79.662 Pain in left lower leg (principal)

== ENCOUNTER → 2019-12-10 | Outpatient (CLI) | payer BC ==
--- NOTE | 2019-12-10 15:27 | CT ---
EXAMINATION TYPE: CT abdomen pelvis wo/w con DATE OF EXAM: 12/10/2019 COMPARISON: NONE HISTORY: 59-year-old male Microscopic hematuria, constipation and incomplete emptying. TECHNIQUE: Contiguous axial scanning of the abdomen and pelvis before and after administration of 100 ml Isovue 300 IV contrast. Delayed images through the kidneys and coronal/sagittal reconstructions performed. CT DLP: 1656.6 mGycm Automated exposure control for dose reduction was used. FINDINGS: Right atrial and right ventricular AICD leads. Heart normal size without pericardial effusion. Domina nt strands of atelectasis or scarring in the lower lungs without pleural effusion. No focal liver lesion or biliary ductal dilatation. Portal venous system is patent. Gallbladder, adrenal glands, spleen, and pancreas appear within normal limits. There is a punctate 2 mm nonobstructive right lower pole renal calculus. No dilated small bowel, free fluid, or free air. No mesenteric or retroperitoneal lymphadenopathy. Normal appendix. Oral contrast progressed into the ascending colon. There is moderate stool burden. S igmoid diverticulosis without pericolonic inflammatory change. Redundant sigmoid colon. Mild to moderate atherosclerotic calcifications infrarenal abdominal aorta without aneurysm. Bladder is urine distended.. Prostate gland enlarged at 4.7 cm wide. No abnormal fluid collection in the pelvis or pelvic lymphadenopathy. Bones: Antegrade intramedullary nail of the right hip with hip screw fixation. Moderate degenerative change of both hips. Degenerative changes left SI joint with bony ankylosis. Facet arthropathy great est in the lower lumbar spine. Trace grade 1 retrolisthesis at L2-L3. IMPRESSION: 1. PUNCTATE 2 MM NONOBSTRUCTIVE RIGHT RENAL CALCULUS. NO HYDRONEPHROSIS OR SUSPICIOUS RENAL LESION SE EN. 2. MILD PROSTATOMEGALY AT 4.7 CM WIDE.
== END | disposition home or self-care (01) ==
LOC: RADCTMAIN 13:05
PROVIDERS: ATTEND Internal Medicine
DX: N20.0 Calculus of kidney (principal); N40.0 Benign prostatic hyperplasia without lower urinary tract symptoms
CPT/HCPCS: 74178; Q9967 ×2

== ENCOUNTER → 2020-11-18 | Outpatient (CLI) | payer BC ==
--- NOTE | 2020-11-19 15:36 | CT ---
EXAMINATION TYPE: CT abdomen pelvis wo/w con DATE OF EXAM: 11/18/2020 COMPARISON: 12/10/2019 INDICATION: Abdominal pain, pressure, more on RT side. DLP: 1837.8 mGycm, Automated exposure control for dose reduction was used. CONTRAST: 100 mL of Isovue 300. Study performed with Oral Contrast TECHNIQUE: Axial images were obtained from above the diaphragm to the pubic rami in the axial plane a t 5 mm thick sections. Reconstructed images are reviewed on the computer in the coronal plane. FINDINGS: Limited CT sections are obtained the lung bases. The lung bases are clear. CT ABDOMEN: Liver: Normal Spleen: Normal Pancreas: Normal Adrenal glands: The adrenal glands are normal. Gallbladder: Normal Kidneys: No masses are evident. No hydronephrosis is present. No cysts are present. Punctate 2 mm calcification is at the inferior pole right kidney. No obstruction is evident. Delayed images were ob tained through the kidneys. Kidneys remain unremarkable Aorta: Vascular calcification is within the aorta. Inferior vena cava: Normal. CT PELVIS: Oral contrast extends to the colon. There are loops of bowel lacking oral contrast are incompletely d istended limiting their evaluation. Diverticulosis without acute diverticulitis within the sigmoid co arminda. Appendix: Normal as visualized. Urinary bladder: Normal. Genitourinary structures: Prostate is prominent and contains calcifications. Osseous structures: No suspicious lytic or sclerotic lesions. Right hip prosthesis is present. No acu te fractures are evident. IMPRESSIONS: 1. Nonobstructing 2 mm right inferior pole renal stone. 2. Diverticulosis without acute diverticulitis.
== END | disposition home or self-care (01) ==
LOC: RADCTMAIN 16:20
PROVIDERS: ATTEND Family Medicine
DX: N20.0 Calculus of kidney (principal)
CPT/HCPCS: 74178; Q9967

== ENCOUNTER → 2020-12-30 | Outpatient (CLI) | payer BC ==
--- NOTE | 2020-12-31 07:32 | US ---
EXAMINATION TYPE: US thyroid st tissue head/neck DATE OF EXAM: 12/30/2020 COMPARISON: NONE CLINICAL HISTORY: E04.9 Nontoxic goiter. Pt states fatigue, possible thyroid enlargement on Dr's exam ination GLAND SIZE: Right Lobe: 6.7 x 2.5 x 2.1 cm Overall Parenchyma: homogenous Left Lobe: 6.2 x 3.7 x 3.0 cm Overall Parenchyma: heterogeneous Isthmus Thickness: 0.5 cm NODULES RIGHT: # of nodules measured on right: 2 1. 0.6 X 0.7 x 0.6 cm, mid, solid or almost completely solid, hyperechoic nodule, which is taller t george wide, with smooth margins, without echogenic foci. Prior size: No prior 2. 0.5 X 0.3 x 0.5 cm, upper, mixed cystic and solid, hypoechoic nodule, which is wider than tall, with smooth margins, without echogenic foci. Prior size: No prior LEFT: # of nodules measured on left: 1 1. 3.9 X 2.4 x 3.0 cm, mid, solid or almost completely solid, isoechoic nodule, which is wider than tall, with smooth margins, without echogenic foci. Prior size: No prior Bilateral neck scanned, no evidence of lymphadenopathy. Enlarged thyroid with nodules bilaterally, l eft lobe nodule >1cm IMPRESSION: Bilateral thyroid nodules. 2017 ACR TI-RADS LEVEL: TR-RADS 4 - Moderately Suspicious: Follow if > 1 cm, FNA if > 1.5 cm *Highest TI-RADS level nodule reported
== END | disposition home or self-care (01) ==
LOC: RADUSWWP 15:35
PROVIDERS: ATTEND Family Medicine
DX: E04.2 Nontoxic multinodular goiter (principal)
CPT/HCPCS: 76536

== ENCOUNTER 2021-03-02 11:17 | Inpatient (IN) | payer BC ==
--- NOTE | 2021-03-02 12:15 | ED ---
General Adult HPI - General Chief complaint: Shortness of Breath Stated complaint: sob/right arm tingle Time Seen by Provider: 03/02/21 11:45 Source: patient, family, RN notes reviewed, old records reviewed Mode of arrival: wheelchair Limitations: no limitations - History of Present Illness Initial comments: This is a 61-year-old male with past medical history significant for atrial fibrillation and is on Coumadin. Patient also is a smoker. Patient comes in today stating he is short of breath. Patient states been going on for a couple of years but more recently is gotten worse his cough has gotten worse and he is starting to have productive sputum. Patient states any kind of movement exacerbates the shortness of breath per patient denies chest pain or palpitations. Patient denies any recent fever or chills. Patient denies headache patient denies numbness weakness per patient denies lightheadedness or dizziness. Patient states he got the COVID vaccine. Patient denies any abdominal pain patient denies vomiting or diarrhea. Patient does complain of some swelling in the left leg and some calf tenderness in the left calf - Related Data Home Medications Medication Instructions Recorded Confirmed Losartan [Cozaar] 50 mg PO HS 03/02/21 03/02/21 Metoprolol Succinate (ER) [Toprol 100 mg PO DAILY 03/02/21 03/02/21 Xl] Warfarin Sodium 6 mg PO HS 03/02/21 03/02/21 Previous Rx's Medication Instructions Recorded Spironolactone [Aldactone] 25 mg PO DAILY #30 tab 02/16/17 Allergies Allergy/AdvReac Type Severity Reaction Status Date / Time amoxicillin Allergy Rash/Hives Verified 03/02/21 14:04 Penicillins Allergy Rash/Hives Verified 03/02/21 14:04 Review of Systems ROS Statement: Those systems with pertinent positive or pertinent negative responses have been documented in the HPI. ROS Other: All systems not noted in ROS Statement are negative. Past Medical History Past Medical History: Atrial Flutter, Hyperlipidemia, Hypertension, Osteoarthritis (OA), Seizure Disorder Additional Past Medical History / Comment(s): EPILEPSY (TOOK DILANTIN, LAST SEIZURE 40 YERS AGO) "OCC HEADACHES", intermittent constipation/diarrhea, see Dr Garduno H & P History of Any Multi-Drug Resistant Organisms: None Reported Past Surgical History: Heart Catheterization, Tonsillectomy Additional Past Surgical History / Comment(s): ORIF RIGHT HIP, COLONOSCOPY, HEMORROIDECTOMY, SX FOR UNDESCENDED TESTICLE. Past Anesthesia/Blood Transfusion Reactions: No Reported Reaction Past Psychological History: Depression Smoking Status: Current every day smoker Past Alcohol Use History: Occasional Past Drug Use History: Marijuana - Past Family History Father Family Medical History: Cancer Additional Family Medical History / Comment(s): COLON Mother Family Medical History: Myocardial Infarction ([place]) General Exam - General Exam Comments Initial Comments: GENERAL: Patient is well-developed and well-nourished. Patient is nontoxic and well- hydrated and is in acute distress. ENT: Neck is soft and supple. No significant lymphadenopathy is noted. Oropharynx is clear. Moist mucous membranes. Neck has full range of motion without eliciting any pain. EYES: The sclera were anicteric and conjunctiva were pink and moist. Extraocular movements were intact and pupils were equal round and reactive to light. Eyelids were unremarkable. PULMONARY: Patient has diminished breath sounds and almost no breath sounds in the right base. CARDIOVASCULAR: There is a regular rate and rhythm without any murmurs gallops or rubs. ABDOMEN: Soft and nontender with normal bowel sounds. SKIN: Skin is clear with no lesions or rashes and otherwise unremarkable. NEUROLOGIC: Patient is alert and oriented x3. Cranial nerves II through XII are grossly intact. Motor and sensory are also intact. Normal speech, volume and content. Symmetrical smile. Cerebellar exam grossly intact. MUSCULOSKELETAL: Normal extremities with adequate strength and full range of motion. Patient has slight swelling in the left leg and some left calf tenderness LYMPHATICS: No significant lymphadenopathy is noted PSYCHIATRIC: Normal psychiatric evaluation. Limitations: no limitations Course Vital Signs 03/02/21 03/02/21 03/02/21 11:39 12:06 12:07 Temperature 98.1 F Pulse Rate 67 65 Respiratory 18 18 18 Rate Blood Pressure 148/81 151/82 O2 Sat by Pulse 76 L Oximetry 03/02/21 03/02/21 14:18 14:25 Temperature Pulse Rate 63 60 Respiratory Rate Blood Pressure O2 Sat by Pulse Oximetry Medical Decision Making - Medical Decision Making EKG shows atrial fibrillation 65 bpm QRS 110 QTC is 448 QTC is 465. Patient's EKG shows no ST segment elevation or depression. Patient's chest x-ray shows no acute abnormality. Patient was oximetry about 96% on room air however when he Just walked to the bathroom he was extremely short of breath and did not feel comfortable going home. Patient states she's never been given a nebulizer for home. Patient states he used to have a few inhalers but the cost to much to stop getting them. Patient received albuterol and Solu-Medrol the emergency department but he states it did not help much. I spoke with some physicians they agreed to admit the patient admitted the patient wrote admitting orders. - Lab Data Result diagrams: 03/02/21 12:17 03/02/21 12:17 Lab Results 03/02/21 03/02/21 03/02/21 Range/Units 12:17 12:17 12:17 WBC 7.4 (3.8-10.6) k/uL RBC 5.15 (4.30-5.90) m/uL Hgb 17.1 (13.0-17.5) gm/dL Hct 54.3 H (39.0-53.0) % MCV 105.5 H (80.0-100.0) fL MCH 33.3 (25.0-35.0) pg MCHC 31.6 (31.0-37.0) g/dL RDW 13.8 (11.5-15.5) % Plt Count 153 (150-450) k/uL MPV 7.7 Neutrophils % 69 % Lymphocytes % 21 % Monocytes % 7 % Eosinophils % 1 % Basophils % 1 % Neutrophils # 5.1 (1.3-7.7) k/uL Lymphocytes # 1.6 (1.0-4.8) k/uL Monocytes # 0.5 (0-1.0) k/uL Eosinophils # 0.1 (0-0.7) k/uL Basophils # 0.0 (0-0.2) k/uL Macrocytosis Moderate PT 43.1 H (9.0-12.0) sec INR 4.5 H (<1.2) APTT 36.6 H (22.0-30.0) sec D-Dimer 0.20 (<0.60) mg/L FEU Sample Site ABG pH (7.35-7.45) ABG pCO2 (35-45) mmHg ABG pO2 (83-108) mmHg ABG HCO3 (21-25) mmol/L ABG Total CO2 (19-24) mmol/L ABG O2 Saturation (94-97) % ABG Base Excess mmol/L George Test FiO2 % Sodium (137-145) mmol/L Potassium (3.5-5.1) mmol/L Chloride (98-107) mmol/L Carbon Dioxide (22-30) mmol/L Anion Gap mmol/L BUN (9-20) mg/dL Creatinine (0.66-1.25) mg/dL Est GFR (CKD-EPI)AfAm (>60 ml/min/1.73 sqM) Est GFR (CKD-EPI)NonAf (>60 ml/min/1.73 sqM) Glucose (74-99) mg/dL Plasma Lactic Acid Campbell (0.7-2.0) mmol/L Calcium (8.4-10.2) mg/dL Total Bilirubin (0.2-1.3) mg/dL AST (17-59) U/L ALT (4-49) U/L Alkaline Phosphatase (38-126) U/L Troponin I (0.000-0.034) ng/mL NT-Pro-B Natriuret Pep pg/mL Total Protein (6.3-8.2) g/dL Albumin (3.5-5.0) g/dL Coronavirus (PCR) Not Detected (Not Detectd) 03/02/21 03/02/21 03/02/21 Range/Units 12:17 12:17 12:17 WBC (3.8-10.6) k/uL RBC (4.30-5.90) m/uL Hgb (13.0-17.5) gm/dL Hct (39.0-53.0) % MCV (80.0-100.0) fL MCH (25.0-35.0) pg MCHC (31.0-37.0) g/dL RDW (11.5-15.5) % Plt Count (150-450) k/uL MPV Neutrophils % % Lymphocytes % % Monocytes % % Eosinophils % % Basophils % % Neutrophils # (1.3-7.7) k/uL Lymphocytes # (1.0-4.8) k/uL Monocytes # (0-1.0) k/uL Eosinophils # (0-0.7) k/uL Basophils # (0-0.2) k/uL Macrocytosis PT (9.0-12.0) sec INR (<1.2) APTT (22.0-30.0) sec D-Dimer (<0.60) mg/L FEU Sample Site ABG pH (7.35-7.45) ABG pCO2 (35-45) mmHg ABG pO2 (83-108) mmHg ABG HCO3 (21-25) mmol/L ABG Total CO2 (19-24) mmol/L ABG O2 Saturation (94-97) % ABG Base Excess mmol/L George Test FiO2 % Sodium 138 (137-145) mmol/L Potassium 4.5 (3.5-5.1) mmol/L Chloride 99 (98-107) mmol/L Carbon Dioxide 32 H (22-30) mmol/L Anion Gap 7 mmol/L BUN 7 L (9-20) mg/dL Creatinine 0.58 L (0.66-1.25) mg/dL Est GFR (CKD-EPI)AfAm >90 (>60 ml/min/1.73 sqM) Est GFR (CKD-EPI)NonAf >90 (>60 ml/min/1.73 sqM) Glucose 112 H (74-99) mg/dL Plasma Lactic Acid Campbell 1.1 (0.7-2.0) mmol/L Calcium 9.2 (8.4-10.2) mg/dL Total Bilirubin 1.1 (0.2-1.3) mg/dL AST 25 (17-59) U/L ALT 14 (4-49) U/L Alkaline Phosphatase 78 (38-126) U/L Troponin I <0.012 (0.000-0.034) ng/mL NT-Pro-B Natriuret Pep pg/mL Total Protein 6.5 (6.3-8.2) g/dL Albumin 4.0 (3.5-5.0) g/dL Coronavirus (PCR) (Not Detectd) 03/02/21 03/02/21 Range/Units 12:17 13:09 WBC (3.8-10.6) k/uL RBC (4.30-5.90) m/uL Hgb (13.0-17.5) gm/dL Hct (39.0-53.0) % MCV (80.0-100.0) fL MCH (25.0-35.0) pg MCHC (31.0-37.0) g/dL RDW (11.5-15.5) % Plt Count (150-450) k/uL MPV Neutrophils % % Lymphocytes % % Monocytes % % Eosinophils % % Basophils % % Neutrophils # (1.3-7.7) k/uL Lymphocytes # (1.0-4.8) k/uL Monocytes # (0-1.0) k/uL Eosinophils # (0-0.7) k/uL Basophils # (0-0.2) k/uL Macrocytosis PT (9.0-12.0) sec INR (<1.2) APTT (22.0-30.0) sec D-Dimer (<0.60) mg/L FEU Sample Site rrad ABG pH 7.40 (7.35-7.45) ABG pCO2 55 H (35-45) mmHg ABG pO2 82 L (83-108) mmHg ABG HCO3 34 H (21-25) mmol/L ABG Total CO2 36 H (19-24) mmol/L ABG O2 Saturation 96.6 (94-97) % ABG Base Excess 9.1 mmol/L George Test Yes FiO2 21 % Sodium (137-145) mmol/L Potassium (3.5-5.1) mmol/L Chloride (98-107) mmol/L Carbon Dioxide (22-30) mmol/L Anion Gap mmol/L BUN (9-20) mg/dL Creatinine (0.66-1.25) mg/dL Est GFR (CKD-EPI)AfAm (>60 ml/min/1.73 sqM) Est GFR (CKD-EPI)NonAf (>60 ml/min/1.73 sqM) Glucose (74-99) mg/dL Plasma Lactic Acid Campbell (0.7-2.0) mmol/L Calcium (8.4-10.2) mg/dL Total Bilirubin (0.2-1.3) mg/dL AST (17-59) U/L ALT (4-49) U/L Alkaline Phosphatase (38-126) U/L Troponin I (0.000-0.034) ng/mL NT-Pro-B Natriuret Pep 342 pg/mL Total Protein (6.3-8.2) g/dL Albumin (3.5-5.0) g/dL Coronavirus (PCR) (Not Detectd) Disposition Clinical Impression: Acute exacerbation of chronic obstructive pulmonary disease Disposition: ADMITTED IP TO THIS HOSP Referrals: Darshana Lainez MD [Primary Care Provider] - 1-2 days Time of Disposition: 15:16
[2021-03-02 12:43] LABS: Basophils % (A) 1 %; Eosinophils # (A) 0.1 k/uL (0-0.7); Eosinophils % (A) 1 %; HCT 54.3 % (39.0-53.0); HGB 17.1 gm/dL (13.0-17.5); Lymphocytes # (A) 1.6 k/uL (1.0-4.8); Lymphocytes % (A) 21 %; MCH 33.3 pg (25.0-35.0); MCHC 31.6 g/dL (31.0-37.0); MCV 105.5 fL (80.0-100.0); Macrocytosis Moderate; Mean Platelet Volume 7.7; Monocytes # (A) 0.5 k/uL (0-1.0); Monocytes % (A) 7 %; Neutrophils # (A) 5.1 k/uL (1.3-7.7); Neutrophils % (A) 69 %; Platelet Count 153 k/uL (150-450); RBC 5.15 m/uL (4.30-5.90); RDW 13.8 % (11.5-15.5); WBC 7.4 k/uL (3.8-10.6)
[2021-03-02 12:47] LABS: ALT 14 U/L (4-49); AST 25 U/L (17-59); African American GFR (CKD) >90 (>60 ml/min/1.73 sqM); Alkaline Phosphatase 78 U/L (38-126); Anion Gap 7 mmol/L; Blood Urea Nitrogen 7 mg/dL (9-20); Calcium 9.2 mg/dL (8.4-10.2); Carbon Dioxide 32 mmol/L (22-30); Chloride 99 mmol/L (98-107); Glucose 112 mg/dL (74-99); Non-African American GFR(CKD) >90 (>60 ml/min/1.73 sqM); Potassium 4.5 mmol/L (3.5-5.1); Sodium 138 mmol/L (137-145); Total Bilirubin 1.1 mg/dL (0.2-1.3); Total Protein 6.5 g/dL (6.3-8.2)
[2021-03-02 12:56] LABS: INR 4.5 (<1.2); Partial Thromboplastin Time 36.6 sec (22.0-30.0); Prothrombin Time 43.1 sec (9.0-12.0)
--- NOTE | 2021-03-02 12:57 | XR ---
EXAMINATION TYPE: XR chest 2V DATE OF EXAM: 03/02/2021 COMPARISON: 06/20/2018 HISTORY: Shortness of breath TECHNIQUE: Frontal and lateral views of the chest are obtained. FINDINGS: Scattered senescent parenchymal changes noted. Hyperinflation compatible with COPD. No evidence for infiltrate. No evidence for atelectasis. Heart size is stable. Mediastinal structures are stable and grossly unremarkable. No evidence for hilar prominence. Degenerative changes dorsal spine. IMPRESSION: 1. No evidence for acute pulmonary disease.
[2021-03-02 13:13] LABS: ABG Base Excess 9.1 mmol/L; ABG HCO3 34 mmol/L (21-25); ABG Oxygen Saturation 96.6 % (94-97); ABG PCO2 55 mmHg (35-45); ABG PO2 82 mmHg (83-108); ABG TCO2 36 mmol/L (19-24); Allen Test Performed? Yes
--- NOTE | 2021-03-02 13:36 | US ---
EXAMINATION TYPE: US venous doppler duplex LE LT DATE OF EXAM: 03/02/2021 1:25 PM COMPARISON: US CLINICAL HISTORY: Calf pain and swelling. EC patient with MICHELE and left lower leg swelling x 3 weeks. SIDE PERFORMED: Left TECHNIQUE: The lower extremity deep venous system is examined utilizing real time linear array sonog lazaro with graded compression, doppler sonography and color-flow sonography. VESSELS IMAGED: Common Femoral Vein Deep Femoral Vein Greater Saphenous Vein * Femoral Vein Popliteal Vein Small Saphenous Vein * Proximal Calf Veins (* superficial vessels) Left Leg: Negative for DVT IMPRESSION: No evidence for DVT.
[2021-03-02] MEDS ORDERED: IPRATROPIUM-ALBUTEROL 3 ML NEB INHALATION STA ×2 (14:02→15:26)
[2021-03-02] MEDS ORDERED: methylPREDNISolone SOD SUCCI 125 MG/2 ML VIAL IV STA (14:02)
[2021-03-02] MEDS ORDERED: IPRATROPIUM-ALBUTEROL 3 ML NEB INHALATION PRN (15:18)
--- NOTE | 2021-03-02 17:08 | P.HPIM ---
<Seferino Smyth - Last Filed: 03/02/21 17:49> History of Present Illness H&P Date: 03/02/21 Chief Complaint: Shortness of breath History of Presenting Illness: Patient is a very pleasant 61-year-old male with a past medical history of hypertension, hyperlipidemia, atrial fibrillation on Coumadin and status post pacemaker/defibrillator placement, Long-standing history of encourage use of tobacco products reportedly smoking one pack of cigarettes daily times greater than 40 years.. He presented to the emergency department with reports of shortness of breathAnd was found to be in significant respiratory distress with hypoxia with SpO2 of 76% on room air. Patient was placed on oxygen and given Solu-Medrol 125 mg IVP along with DuoNeb.. ABG revealing patient with compensated respiratory acidosis with pH 7.40, pCO2 55, pO2 82, pCO2 334, total CO2 36, and base of 9.1. Coags revealing supratherapeutic INR at 4.5. CBC and BMP showing no significant abnormalities. BMP positive for hypercarbia with CO2 of 32. Troponin negative at less than 0.012. ProBNP 342. Covid PCR negative. Chest x-ray revealing hyperinflation compatible with COPD, but negative for acute cardiopulmonary process. EKG revealing atrial fibrillation with a controlled ventricular rate of 65 bpm. Venous Doppler left lower extremity negative for DVT. Patient reports progressively worsening shortness of breath over the past couple years but states throughout the past couple weeks things have rapidly worsened and over the past couple days he has been unable to catch his breath and is now occasionally bringing up kaushik or rust-colored sputum. Upon assessment at bedside patient 90% on 4 L O2 via nasal cannula with respirations tachypneic, shallow, and slightly labored. Lungs very tight with diffuse bilateral expiratory wheezes present.. Patient with moderate distress and only able to speak in 2-3 word sentences without gasping for air. He reports receiving both of his Covid 19 vaccinations, stating he received the Moderna vaccination with second vaccination being given back in September 2020. He denies having any recent Infections or exposure to known ill contacts, fevers, chills, headache, lightheadedness, dizziness, chest pain, palpitations, or experiencing any numbness/tingling/weakness in his extremities. Patient does report left lower extremity swelling 2 weeks. He denies previous diagnosis of COPD or previously being seen by a search strategist. Review of systems: Pertinent positives and negatives as discussed in HPI, a complete review of systems was performed and all other systems are negative. Physical exam: Vital signs reviewed and stable. General: Nontoxic, no distress and appears stated age. Derm: Skin warm and dry, normal coloration for ethnicity. Head: Atraumatic, normocephalic and symmetric. Eyes: EOMs intact, no lid lag, and anicteric sclera Mouth: no lip lesions, mucus membranes moist Cardiovascular: regular rate and rhythm with normal S1S2, no murmur, positive posterior tibial pulses bilaterally, and cap refill < 2 seconds. Lungs: Respirations tachypneic, shallow, and slightly labored. Lungs very tight with diffuse bilateral expiratory wheezes present.. Patient with moderate distress and only able to speak in 2-3 word sentences without gasping for air. Patient on 4 L O2 with SpO2 of 90%. Abdominal: soft, nontender to palpation, no guarding, no appreciable organomegaly Ext: ROM intact. No gross muscle atrophy, no contractures. Left lower extremity swelling 1+ pitting edema. Neuro: Speech clear, face symmetrical and CN II-XII grossly intact with no noted focal neuro deficits Psych: Alert and oriented to person, place, time, and situation. Appropriate and pleasant affect. Assessment and Plan of Care: Acute respiratory failure with hypoxia and hypercarbia -ABG revealing patient with compensated respiratory acidosis with pH 7.40, pCO2 55, pO2 82, pCO2 334, total CO2 36, and base of 9.1. -Troponin negative at less than 0.012. ProBNP 342. D-dimer negative. -Covid PCR negative. -Chest x-ray revealing hyperinflation compatible with COPD, but negative for acute cardiopulmonary process. -Oxygenation to be administered and titrated as needed to maintain SPO2 equal to or greater than 92% -Telemetry monitoring. -Continuous Pulse-oximetry -Duonebs Scheduled and as needed for SOB and/or wheezing -Incentive Spirometry -Steroids: Solu-Medrol -Consult to pulmonology -CT PE to be completed Left lower extremity swelling -Venous Doppler left lower extremity negative for DVT. Chronic persistent Atrial fibrillation on anticoagulation with Coumadin status post pacemaker/defibrillator placement -EKG revealing atrial fibrillation with a controlled ventricular rate of 65 bpm. -Supratherapeutic INR of 4.5. -Coumadin being held secondary to supratherapeutic levels, we will resume once INR is less than 3 and pharmacy to dose based on these levels. Hypertension -Monitor vital signs and continue daily medication regimen with losartan and metoprolol. Nicotine dependence -Continue to encourage and educate patient on the benefits of smoking cessation and risks of continued use up to and including . The patient is admitted with an anticipated greater than 2 midnight stay for dai luation of Acute respiratory failure with hypoxia and hypercarbia. CODE STATUS: Full code DVT prophylaxis: Coumadin Discussed with: Patient and RN Anticipated discharge date: Clinical course to determine Anticipated discharge place: Home A total of 45 minutes was spent on the care of this complex patient more than 50% of the time was spent in counseling and care coordination. Past Medical History Past Medical History: Atrial Flutter, Hyperlipidemia, Hypertension, Osteoarthritis (OA), Seizure Disorder Additional Past Medical History / Comment(s): EPILEPSY (TOOK DILANTIN, LAST SEIZURE 40 YERS AGO) "OCC HEADACHES", intermittent constipation/diarrhea, see Dr Garduno H & P History of Any Multi-Drug Resistant Organisms: None Reported Past Surgical History: Heart Catheterization, Tonsillectomy Additional Past Surgical History / Comment(s): ORIF RIGHT HIP, COLONOSCOPY, HEMORROIDECTOMY, SX FOR UNDESCENDED TESTICLE. Past Anesthesia/Blood Transfusion Reactions: No Reported Reaction Past Psychological History: Depression Smoking Status: Current every day smoker Past Alcohol Use History: Occasional Past Drug Use History: Marijuana - Past Family History Father Family Medical History: Cancer Additional Family Medical History / Comment(s): COLON Mother Family Medical History: Myocardial Infarction ([place]) Medications and Allergies Home Medications Medication Instructions Recorded Confirmed Type Spironolactone [Aldactone] 25 mg PO DAILY #30 tab 02/16/17 03/02/21 Rx Losartan [Cozaar] 50 mg PO HS 03/02/21 03/02/21 History Metoprolol Succinate (ER) [Toprol 100 mg PO DAILY 03/02/21 03/02/21 History Xl] Warfarin Sodium 6 mg PO HS 03/02/21 03/02/21 History Allergies Allergy/AdvReac Type Severity Reaction Status Date / Time amoxicillin Allergy Rash/Hives Verified 03/02/21 14:04 Penicillins Allergy Rash/Hives Verified 03/02/21 14:04 Physical Exam Vitals: Vital Signs Temp Pulse Resp BP Pulse Ox 03/02/21 16:24 70 03/02/21 16:00 65 03/02/21 14:25 60 03/02/21 14:18 63 03/02/21 12:07 65 18 151/82 03/02/21 12:06 18 03/02/21 11:39 98.1 F 67 18 148/81 76 L Intake and Output 03/02/21 03/02/21 03/02/21 06:59 14:59 22:59 Other: Weight 99.79 kg Results CBC & Chem 7: 03/02/21 12:17 03/02/21 12:17 Labs: Abnormal Lab Results - Last 24 Hours (Table) 03/02/21 03/02/21 03/02/21 Range/Units 12:17 12:17 12:17 Hct 54.3 H (39.0-53.0) % MCV 105.5 H (80.0-100.0) fL PT 43.1 H (9.0-12.0) sec INR 4.5 H (<1.2) APTT 36.6 H (22.0-30.0) sec ABG pCO2 (35-45) mmHg ABG pO2 (83-108) mmHg ABG HCO3 (21-25) mmol/L ABG Total CO2 (19-24) mmol/L Carbon Dioxide 32 H (22-30) mmol/L BUN 7 L (9-20) mg/dL Creatinine 0.58 L (0.66-1.25) mg/dL Glucose 112 H (74-99) mg/dL 03/02/21 Range/Units 13:09 Hct (39.0-53.0) % MCV (80.0-100.0) fL PT (9.0-12.0) sec INR (<1.2) APTT (22.0-30.0) sec ABG pCO2 55 H (35-45) mmHg ABG pO2 82 L (83-108) mmHg ABG HCO3 34 H (21-25) mmol/L ABG Total CO2 36 H (19-24) mmol/L Carbon Dioxide (22-30) mmol/L BUN (9-20) mg/dL Creatinine (0.66-1.25) mg/dL Glucose (74-99) mg/dL <Terri Garvin A - Last Filed: 03/02/21 18:47> Physical Exam Osteopathic Statement: *. No significant issues noted on an osteopathic structural exam other than those noted in the History and Physical/Consult. Vitals: Vital Signs Temp Pulse Resp BP Pulse Ox 03/02/21 18:36 98.9 F 69 18 140/67 91 L 03/02/21 18:15 69 18 137/73 89 L 03/02/21 16:24 70 03/02/21 16:00 65 03/02/21 14:25 60 03/02/21 14:18 63 03/02/21 12:07 65 18 151/82 03/02/21 12:06 18 03/02/21 11:39 98.1 F 67 18 148/81 76 L Intake and Output 03/02/21 03/02/21 03/02/21 06:59 14:59 22:59 Other: Weight 99.79 kg Results CBC & Chem 7: 03/02/21 12:17 03/02/21 12:17 Labs: Abnormal Lab Results - Last 24 Hours (Table) 03/02/21 03/02/21 03/02/21 Range/Units 12:17 12:17 12:17 Hct 54.3 H (39.0-53.0) % MCV 105.5 H (80.0-100.0) fL PT 43.1 H (9.0-12.0) sec INR 4.5 H (<1.2) APTT 36.6 H (22.0-30.0) sec ABG pCO2 (35-45) mmHg ABG pO2 (83-108) mmHg ABG HCO3 (21-25) mmol/L ABG Total CO2 (19-24) mmol/L Carbon Dioxide 32 H (22-30) mmol/L BUN 7 L (9-20) mg/dL Creatinine 0.58 L (0.66-1.25) mg/dL Glucose 112 H (74-99) mg/dL 03/02/21 Range/Units 13:09 Hct (39.0-53.0) % MCV (80.0-100.0) fL PT (9.0-12.0) sec INR (<1.2) APTT (22.0-30.0) sec ABG pCO2 55 H (35-45) mmHg ABG pO2 82 L (83-108) mmHg ABG HCO3 34 H (21-25) mmol/L ABG Total CO2 36 H (19-24) mmol/L Carbon Dioxide (22-30) mmol/L BUN (9-20) mg/dL Creatinine (0.66-1.25) mg/dL Glucose (74-99) mg/dL Assessment and Plan Assessment: Patient seen and examined independently. Patient was also seen by Seferino Smyth NP and case was discussed. I am in agreement with subjective, physical exam, assessment and plan as written above and amended below. Patient reports that he has a weak heart" 30%". He reports that he has had intermittent lower extremity edema with negative venous Dopplers. He reports that his breathing has slowly been getting worse over time and he probably should have come in earlier, but he could no longer "handle it" today. General: non toxic, no distress, appears at stated age Derm: warm, dry Head: atraumatic, normocephalic, symmetric Eyes: EOMI, no lid lag, anicteric sclera Mouth: no lip lesion, mucus membranes moist Cardiovascular: S1S2 reg, no murmur, positive posterior tibial pulse bilateral, Lungs: Decreased bs bilateral with long exhalation period, no accessory muscle use, + Acessory muscle use, + pursed lip breathing Abdominal: soft, nontender to palpation, no guarding, no appreciable organomegaly Ext: no gross muscle atrophy, trace edema, no contractures Neuro: CN II-XI grossly intact, no focal neuro deficits Psych: Alert, oriented, appropriate affect Thorough record review was performed for the patient. 2017 echocardiogram: Ejection fraction 25-30%, with severely dilated left atrium, an atrial septal defect with shunt from left to right Pulmonary function test 2019: Severe COPD, probable hypoxemia secondary to reduced diffusion capacity, significant in air trapping Patient likely with acute exacerbation of severe COPD on top of systolic cardiomyopathy. Concerns for pulmonary cardiac shunting secondary to severe hypoxemia despite normal chest x-ray. Would repeat echocardiogram to reassess ejection fraction and to see if RVSP has increased indicating secondary pulmonary hypertension which could be related to either left heart failure or severe COPD, reassess patient's atrial septal defect with shunt. Consult pulm. Await CTA to assess for signs of intrinsic lung disease though DLCO likely related to severe emphysema.
[2021-03-02] MEDS ORDERED: WARFARIN 0.5 MG TAB PO ONE (18:00)
[2021-03-02] MEDS: methylPREDNISolone SOD SUCCI 125 MG/2 ML VIAL IV SCH (18:30)
--- NOTE | 2021-03-02 19:24 | CT ---
EXAMINATION TYPE: CT chest angio for PE DATE OF EXAM: 03/02/2021 COMPARISON: Same-day radiographs. HISTORY: Shortness of breath. CT DLP: 514.1 mGycm Automated exposure control for dose reduction was used. CONTRAST: CT Chest for pulmonary embolism performed with with IV Contrast, patient injected with 100 mL of Isov ue 370. FINDINGS: LUNGS: There is small lingula and minimal bilateral lower lobe dependent opacities. No suspicious pul monary nodule. There is no pleural effusion or pneumothorax seen. The tracheobronchial tree is pat ent. There is mild centrilobular emphysema. MEDIASTINUM: There is satisfactory enhancement of the pulmonary artery and its branches, there is no CT evidence for pulmonary embolism. There are no greater than 1 cm hilar or mediastinal lymph nodes. No pericardial effusion is seen. OTHER: No additional significant abnormality is seen. IMPRESSION: No acute PE. Minimal bibasilar dependent opacities, probably atelectasis. Developing infiltrates are better exclud ed clinically. Mild emphysema.
[2021-03-02] MEDS: IPRATROPIUM-ALBUTEROL 3 ML NEB INHALATION SCH (19:27)
[2021-03-02] MEDS: LOSARTAN 50 MG TAB PO SCH (20:11)
[2021-03-02] MEDS: HYDROcodone/APAP 5-325MG 1 EACH TAB PO PRN (22:54)
[2021-03-03] MEDS: methylPREDNISolone SOD SUCCI 125 MG/2 ML VIAL IV SCH ×5 (00:28→23:30)
[2021-03-03] MEDS: IPRATROPIUM-ALBUTEROL 3 ML NEB INHALATION SCH ×7 (00:37→19:43)
[2021-03-03 04:45] LABS: HCT 52.6 % (39.0-53.0); HGB 16.2 gm/dL (13.0-17.5); Hypochromasia Slight; MCHC 30.8 g/dL (31.0-37.0); MCV 107.2 fL (80.0-100.0); Macrocytosis Moderate; Mean Platelet Volume 7.8; Platelet Count 156 k/uL (150-450); RDW 13.7 % (11.5-15.5); WBC 6.6 k/uL (3.8-10.6)
[2021-03-03 04:47] LABS: African American GFR (CKD) >90 (>60 ml/min/1.73 sqM); Anion Gap 6 mmol/L; Blood Urea Nitrogen 9 mg/dL (9-20); Carbon Dioxide 33 mmol/L (22-30); Chloride 97 mmol/L (98-107); Glucose 181 mg/dL (74-99); Magnesium 1.8 mg/dL (1.6-2.3); Non-African American GFR(CKD) >90 (>60 ml/min/1.73 sqM); Sodium 136 mmol/L (137-145)
[2021-03-03 04:55] LABS: INR 3.9 (<1.2); Prothrombin Time 37.7 sec (9.0-12.0)
[2021-03-03] MEDS ORDERED: IPRATROPIUM-ALBUTEROL 3 ML NEB INHALATION PRN (07:34)
[2021-03-03] MEDS: FORMOTEROL FUMARATE 20 MCG/2 ML NEBU INHALATION SCH ×2 (07:38→19:37)
[2021-03-03] MEDS: BUDESONIDE 1 MG/2 ML NEBU INHALATION SCH ×2 (07:38→19:37)
--- NOTE | 2021-03-03 08:06 | P.PN ---
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 He presented to the emergency department with reports of shortness of breath and was found to be in significant respiratory distress with hypoxia with SpO2 of 76% on room air. Patient was placed on oxygen and given Solu-Medrol 125 mg IVP along with DuoNeb.. ABG revealing patient with compensated respiratory acidosis with pH 7.40, pCO2 55, pO2 82, pCO2 334, total CO2 36, and base of 9.1. Coags revealing supratherapeutic INR at 4.5. CBC and BMP showing no significant abnormalities. BMP positive for hypercarbia with CO2 of 32. Troponin negative at less than 0.012. ProBNP 342. Covid PCR negative. Chest x-ray revealing hyperinflation compatible with COPD, but negative for acute cardiopulmonary process. EKG revealing atrial fibrillation with a controlled ventricular rate of 65 bpm. Venous Doppler left lower extremity negative for DVT. Patient reports progressively worsening shortness of breath over the past couple years but states throughout the past couple weeks things have rapidly worsened and over the past couple days he has been unable to catch his breath and is now occasionally bringing up kaushik or rust-colored sputum. Upon assessment at bedside patient 90% on 4 L O2 via nasal cannula with respirations tachypneic, shallow, and slightly labored. Lungs very tight with diffuse bilateral expiratory wheezes present.. Patient with moderate distress and only able to speak in 2-3 word sentences without gasping for air. He reports receiving both of his Covid 19 vaccinations, stating he received the Moderna vaccination with second vaccination being given back in September 2020. He denies having any recent Infections or exposure to known ill contacts, fevers, chills, headache, lightheadedness, dizziness, chest pain, palpitations, or experiencing any numbness/tingling/weakness in his extremities. Patient does report left lower extremity swelling 2 weeks. He denies previous diagnosis of COPD or previously being seen by a radiotelephone operator. However chart review reveals previous PFTs in 2009 showing severe COPD. Patient also had echocardiogram completed in 2017 which revealed a severely impaired ejection fraction of 25-30% with atrial septal defect with left to right shunting. Physical exam: Patient was seen and evaluated at the bedside this morning. He has had noted improvement from yesterday's examination, Respirations are now even, regular, and unlabored. Patient does however To need to have conversational dyspnea as well as diffuse expiratory wheezes bilaterally. Patient reports "a little" improvement in breathing. He denies having any headache, lightheadedness, dizziness, chest pain, palpitations, or experiencing any numbness/tingling/wea kness in his extremities. CTA resulted negative for PE, showing mild centrilobular emphysema with minimal basilar opacities likely atelectasis. Echocardiogram was completed and awaiting results at this time. Vital signs reviewed and stable. General: Nontoxic, no distress and appears stated age. Derm: Skin warm and dry, normal coloration for ethnicity. Head: Atraumatic, normocephalic and symmetric. Eyes: EOMs intact, no lid lag, and anicteric sclera Mouth: no lip lesions, mucus membranes moist Cardiovascular: regular rate and rhythm with normal S1S2, no murmur, positive posterior tibial pulses bilaterally, and cap refill < 2 seconds. Lungs: Respirations even, regular, and unlabored this morning. Lungs with improved air entry noted. Continues with soft diffuse bilateral expiratory wheezes present. Patient continues with conversational dyspnea. Currently on 5L O2 with SPO2 91%. Abdominal: soft, nontender to palpation, no guarding, no appreciable organomegaly Ext: ROM intact. No gross muscle atrophy, no contractures. Left lower extremity swelling 1+ pitting edema. Neuro: Speech clear, face symmetrical and CN II-XII grossly intact with no noted focal neuro deficits Psych: Alert and oriented to person, place, time, and situation. Appropriate and pleasant affect. Assessment and Plan of Care: Acute respiratory failure with hypoxia and hypercarbia Acute COPD exacerbation -ABG revealing patient with compensated respiratory acidosis with pH 7.40, pCO2 55, pO2 82, pCO2 334, total CO2 36, and base of 9.1. -Troponins tended x3 negative at less than 0.012. ProBNP 342. D-dimer negative. -Covid PCR negative. -Chest x-ray revealing hyperinflation compatible with COPD, but negative for acute cardiopulmonary process. -Oxygenation to be administered and titrated as needed to maintain SPO2 equal to or greater than 92% -Telemetry monitoring. -Continuous Pulse-oximetry -Duonebs Scheduled and as needed for SOB and/or wheezing -Incentive Spirometry -Steroids: Solu-Medrol -Consult to pulmonology -Consults cardiology -Repeat echocardiogram -CT PE Negative for Acute process or PE showing mild centrilobular emphysema with minimal basilar opacities likely atelectasis Systolic cardiomyopathy Previous ejection fraction of 25-30% -Repeat echocardiogram -Cardiology consulted for patient's history of EF of 25-30% along with atrioventricular malformation with Left to right shunting Left lower extremity swelling -Venous Doppler left lower extremity negative for DVT. Chronic persistent Atrial fibrillation on anticoagulation with Coumadin status post pacemaker/defibrillator placement -EKG revealing atrial fibrillation with a controlled ventricular rate of 65 bpm. -INR remains supratherapeutic at 3.9 -Coumadin being held secondary to supratherapeutic levels, we will resume once INR is less than 3 and pharmacy to dose based on these levels. Supratherapeutic INR -INR remains supratherapeutic at 3.9 -Coumadin being held secondary to supratherapeutic levels, we will resume once INR is less than 3 and pharmacy to dose based on these levels. Hypertension -Monitor vital signs and continue daily medication regimen with losartan and me toprolol. Nicotine dependence -Continue to encourage and educate patient on the benefits of smoking cessation and risks of continued use up to and including . The patient is admitted with an anticipated greater than 2 midnight stay for evaluation of Acute respiratory failure with hypoxia and hypercarbia. CODE STATUS: Full code DVT prophylaxis: Coumadin Discussed with: Patient and RN Anticipated discharge date: Clinical course to determine Anticipated discharge place: Home A total of 45 minutes was spent on the care of this complex patient more than 50% of the time was spent in counseling and care coordination. Objective - Vital Signs Vital signs: Vital Signs Temp 97.6 F 03/03/21 04:53 Pulse 60 03/03/21 06:25 Resp 18 03/03/21 06:25 BP 122/71 03/03/21 04:53 Pulse Ox 93 L 03/03/21 06:25 Intake & Output 03/02/21 03/03/21 03/03/21 18:59 06:59 18:59 Weight 99.79 kg - Labs CBC & Chem 7: 03/03/21 04:24 03/03/21 04:24 Labs: Abnormal Lab Results - Last 24 Hours (Table) 03/02/21 03/02/21 03/02/21 Range/Units 12:17 12:17 12:17 Hct 54.3 H (39.0-53.0) % MCV 105.5 H (80.0-100.0) fL MCHC (31.0-37.0) g/dL PT 43.1 H (9.0-12.0) sec INR 4.5 H (<1.2) APTT 36.6 H (22.0-30.0) sec ABG pCO2 (35-45) mmHg ABG pO2 (83-108) mmHg ABG HCO3 (21-25) mmol/L ABG Total CO2 (19-24) mmol/L Sodium (137-145) mmol/L Chloride (98-107) mmol/L Carbon Dioxide 32 H (22-30) mmol/L BUN 7 L (9-20) mg/dL Creatinine 0.58 L (0.66-1.25) mg/dL Glucose 112 H (74-99) mg/dL 03/02/21 03/03/21 03/03/21 Range/Units 13:09 04:24 04:24 Hct (39.0-53.0) % MCV 107.2 H (80.0-100.0) fL MCHC 30.8 L (31.0-37.0) g/dL PT (9.0-12.0) sec INR (<1.2) APTT (22.0-30.0) sec ABG pCO2 55 H (35-45) mmHg ABG pO2 82 L (83-108) mmHg ABG HCO3 34 H (21-25) mmol/L ABG Total CO2 36 H (19-24) mmol/L Sodium 136 L (137-145) mmol/L Chloride 97 L (98-107) mmol/L Carbon Dioxide 33 H (22-30) mmol/L BUN (9-20) mg/dL Creatinine 0.61 L (0.66-1.25) mg/dL Glucose 181 H (74-99) mg/dL 03/03/21 Range/Units 04:24 Hct (39.0-53.0) % MCV (80.0-100.0) fL MCHC (31.0-37.0) g/dL PT 37.7 H (9.0-12.0) sec INR 3.9 H (<1.2) APTT (22.0-30.0) sec ABG pCO2 (35-45) mmHg ABG pO2 (83-108) mmHg ABG HCO3 (21-25) mmol/L ABG Total CO2 (19-24) mmol/L Sodium (137-145) mmol/L Chloride (98-107) mmol/L Carbon Dioxide (22-30) mmol/L BUN (9-20) mg/dL Creatinine (0.66-1.25) mg/dL Glucose (74-99) mg/dL
[2021-03-03] MEDS: LEVOFLOXACIN 500 MG TAB PO SCH (08:34)
[2021-03-03] MEDS: NICOTINE 14MG/24HR PATCH TRANSDERM SCH (08:34)
[2021-03-03] MEDS: METOPROLOL SUCCINATE (ER) 100 MG TAB.ER.24H PO SCH (08:34)
--- NOTE | 2021-03-03 10:20 | P.CNPUL ---
History of Present Illness Consult date: 03/03/21 Requesting physician: Terri Garvni Reason for consult: dyspnea, cough, COPD, hypoxemia Chief complaint: Shortness of breath, cough, wheezing, chest tightness. History of present illness: Pulmonary consult dated 03/03/2021. 61-year-old male, with a history of atrial fibrillation. The patient is a heavy smoker, he started smoking at age 11. He continues to smoke up to this day. The patient was seen in the emergency room on March 02, complaining of shortness of breath. The patient likely has pretty severe COPD based on his symptomatology, his smoking history, and his laboratory data. The patient did receive the COVID vaccine. The patient admits to complaints of shortness of b reath, chest tightness, coughing, and wheezing. He is coughing up some phlegm. The patient has never seen a lung doctor in the past. The patient sees a family doctor in [place]. The patient denies coughing up blood. The patient's chest x-ray had nothing acute, and the CT angiogram was negative for pulmonary embolism, as well as anything acute. I did tell the patient that he'll need outpatient follow-up for a complete pulmonary function test, and 6 minute walk distance, once discharged from the hospital. The patient has a history of atrial fibrillation/flutter, hyperlipidemia, hypertension, osteoarthritis, seizure disorder, his had a previous ablation. White count 6.6, hemoglobin 1 6.2, hematocrit 52.6, and platelet count was normal. The patient's PT and INR were 37.7 and 3.9 respectively. A blood gas was done in the emergency department yesterday showed a pO2 of 82, pCO2 of 55, and a pH is 7.40. His blood gases insistent with a mixed acid-base disturbance including a respiratory acidosis and metabolic alkalosis. The patient is clearly a CO2 retainer. Sodium 136, potassium 5, chlorides 97, CO2 33, anion gap 6, BUN 19, creatinine 0.61. Troponins were negative 3. Coronavirus testing was negative. Review of Systems REVIEW OF SYSTEMS: CONSTITUTIONAL: [Negative.] NEUROLOGIC: [ Negative.] HEENT: [ Negative.] CARDIAC: [Negative.] PULMONARY: Shortness of breath, chest tightness, wheezing, cough, and phlegm production. GI: [Negative.] : [Negative.] RHEUMATOLOGIC: [ Negative.] IMMUNOLOGIC: [ Negative.] ENDOCRINE: [Negative. ] DERMATOLOGIC: [Negative.] Past Medical History Past Medical History: Atrial Flutter, Hyperlipidemia, Hypertension, Osteoarthritis (OA), Seizure Disorder Additional Past Medical History / Comment(s): EPILEPSY (TOOK DILANTIN, LAST SEIZURE 40 YERS AGO) "OCC HEADACHES", intermittent constipation/diarrhea, see Dr Garduno H & P History of Any Multi-Drug Resistant Organisms: None Reported Past Surgical History: Heart Catheterization, Tonsillectomy Additional Past Surgical History / Comment(s): ORIF RIGHT HIP, COLONOSCOPY, HEMORROIDECTOMY, SX FOR UNDESCENDED TESTICLE. Past Anesthesia/Blood Transfusion Reactions: No Reported Reaction Past Psychological History: Depression Smoking Status: Current every day smoker Past Alcohol Use History: Occasional Past Drug Use History: Marijuana - Past Family History Father Family Medical History: Cancer Additional Family Medical History / Comment(s): COLON Mother Family Medical History: Myocardial Infarction ([place]) Medications and Allergies Home Medications Medication Instructions Recorded Confirmed Type Spironolactone [Aldactone] 25 mg PO DAILY #30 tab 02/16/17 03/02/21 Rx Losartan [Cozaar] 50 mg PO HS 03/02/21 03/02/21 History Metoprolol Succinate (ER) [Toprol 100 mg PO DAILY 03/02/21 03/02/21 History Xl] Warfarin Sodium 6 mg PO HS 03/02/21 03/02/21 History Allergies Allergy/AdvReac Type Severity Reaction Status Date / Time amoxicillin Allergy Rash/Hives Verified 03/02/21 14:04 Penicillins Allergy Rash/Hives Verified 03/02/21 14:04 Physical Exam Osteopathic Statement: *. No significant issues noted on an osteopathic structural exam other than those noted in the History and Physical/Consult. Vitals: Vital Signs Temp Pulse Pulse Resp BP BP Pulse Ox 03/03/21 07:56 97.9 F 66 16 125/71 91 L 03/03/21 06:25 60 18 93 L 03/03/21 04:53 97.6 F 61 18 122/71 91 L 03/03/21 02:58 72 18 91 L 03/03/21 01:42 70 18 90 L 03/03/21 00:50 68 03/03/21 00:40 67 03/03/21 00:23 67 20 90 L 03/02/21 23:10 98.2 F 74 18 131/76 90 L 03/02/21 21:07 71 18 90 L 03/02/21 20:08 73 20 128/69 89 L 03/02/21 19:44 70 03/02/21 19:27 68 03/02/21 19:06 90 L 03/02/21 18:36 98.9 F 69 18 140/67 91 L 03/02/21 18:15 69 18 137/73 89 L 03/02/21 16:24 70 03/02/21 16:00 65 03/02/21 14:25 60 03/02/21 14:18 63 03/02/21 12:07 65 18 151/82 03/02/21 12:06 18 03/02/21 11:39 98.1 F 67 18 148/81 76 L Intake and Output 03/02/21 03/03/21 03/03/21 22:59 06:59 14:59 Intake Total 236 Balance 236 Intake: Oral 236 No acute distress, oriented 3. Mild conversational dyspnea, without audible wheezing or use of accessory muscles. Currently on 5 L nasal cannula, with saturations of 91-93%. HEENT examination is grossly unremarkable. Neck supple. Full range of motion. No adenopathy thyromegaly or neck vein distention. Cardiovascular examination reveals regular rhythm rate. S1-S2 normal. No S3 or S4. No discernible murmur noted. Heart sounds are distant. Heart rate 66 bpm. Lungs reveal severely diminished bilateral breath sounds. Scattered rhonchi and wheezes are noted. No crackles. Breath sounds are equal bilaterally. Abdomen soft bowel sounds are heard. No masses or tenderness. Extremities are intact. No cyanosis clubbing or edema. Skin is without rash or lesion. Neurologic examination is brief but nonfocal. Results - Laboratory Findings CBC and BMP: 03/03/21 04:24 03/03/21 04:24 ABG ABG pH 7.40 (7.35-7.45) 03/02/21 13:09 ABG pCO2 55 mmHg (35-45) H 03/02/21 13:09 ABG pO2 82 mmHg (83-108) L 03/02/21 13:09 ABG O2 Saturation 96.6 % (94-97) 03/02/21 13:09 PT/INR, D-dimer PT 37.7 sec (9.0-12.0) H 03/03/21 04:24 INR 3.9 (<1.2) H 03/03/21 04:24 D-Dimer 0.20 mg/L FEU (<0.60) 03/02/21 12:17 Abnormal lab findings: Abnormal Labs 03/02/21 03/02/21 03/02/21 12:17 12:17 12:17 Hct 54.3 H MCV 105.5 H MCHC PT 43.1 H INR 4.5 H APTT 36.6 H ABG pCO2 ABG pO2 ABG HCO3 ABG Total CO2 Sodium Chloride Carbon Dioxide 32 H BUN 7 L Creatinine 0.58 L Glucose 112 H 03/02/21 03/03/21 03/03/21 13:09 04:24 04:24 Hct MCV 107.2 H MCHC 30.8 L PT INR APTT ABG pCO2 55 H ABG pO2 82 L ABG HCO3 34 H ABG Total CO2 36 H Sodium 136 L Chloride 97 L Carbon Dioxide 33 H BUN Creatinine 0.61 L Glucose 181 H 03/03/21 04:24 Hct MCV MCHC PT 37.7 H INR 3.9 H APTT ABG pCO2 ABG pO2 ABG HCO3 ABG Total CO2 Sodium Chloride Carbon Dioxide BUN Creatinine Glucose - Diagnostic Findings Chest x-ray: image reviewed CT scan - chest: image reviewed Assessment and Plan Assessment: Acute exacerbation of COPD. Ongoing tobacco use with nicotine addiction. History of atrial flutter. History of hyperlipidemia. History of hypertension. History of osteoarthritis. History of seizure disorder. Status post pacemaker insertion. Plan: Plan dated 03/03/2021. The patient's placed on albuterol sulfate and ipratropium bromide, 4 times a day and when necessary. In addition, the patient will get Pulmicort 1 mg mixed with formoterol 20 g twice a day. The patient also will get Solu-Medrol, 60 mg every 6 hours. The patient be placed on an oral antibiotic. Chest x-ray does not show anny infiltrate or pneumonia. The patient will need outpatient pulmonary function test and 6 minute walk distance. The patient also gets a nicotine patch. He is counseled about the importance of smoking cessation. Prognosis is guarded. Time with Patient: Greater than 30
--- NOTE | 2021-03-03 13:02 | ECHOF ---
Referral Reason:hypoxia. hx of EF 23-30% w/ left to right shunting MEASUREMENTS -------- HEIGHT: 188.0 cm WEIGHT: 99.8 kg BP: 125/71 RVIDd: 4.7 cm (< 3.3) IVSd: 1.8 cm (0.6 - 1.1) LVIDd: 4.1 cm (3.9 - 5.3) LVPWd: 1.6 cm (0.6 - 1.1) IVSs: 2.0 cm LVIDs: 2.7 cm LVPWs: 2.0 cm LAESV Index (A-L): 58.61 ml/m Ao Diam: 3.5 cm (2.0 - 3.7) AV Cusp: 2.6 cm (1.5 - 2.6) MV EXCURSION: 24.991 mm (> 18.000) MV EF SLOPE: 67 mm/s (70 - 150) EPSS: 0.6 cm MV E Wing: 0.92 m/s MV DecT: 178 ms MV A Wing: 0.44 m/s MV E/A Ratio: 2.10 RAP: 20.00 mmHg RVSP: 57.97 mmHg FINDINGS -------- Atrial fibrillation. Pacerwire seen in RV and RA. This was a technically adequate study. The left ventricular size is normal. There is severe concentric left ventricular hypertrophy. Ove rall left ventricular systolic function is normal with, an EF between 55 - 60 %. The right ventricle is severely enlarged. LA is severely dilated >40 ml/m2 The right atrium is moderately enlarged. Interatrial and interventricular septum intact. The aortic valve is trileaflet, and appears structurally normal. No aortic stenosis or regurgitation. The mitral valve leaflets are mildly thickened. Mild mitral regurgitation is present. Moderate tricuspid regurgitation present. There is severe pulmonary hypertension. The right ventr icular systolic pressure, as measured by Doppler, is 57.97mmHg. There is no pulmonic regurgitation present. The aortic root size is normal. The inferior vena cava is dilated with poor inspiratory collapse which is consistent with estimated r ight atrial pressure of 20 mmHg. There is no pericardial effusion. CONCLUSIONS -------- 1. Pacerwire seen in RV and RA. 2. There is severe concentric left ventricular hypertrophy. 3. Overall left ventricular systolic function is normal with, an EF between 55 - 60 %. 4. The right ventricle is severely enlarged. 5. LA is severely dilated >40 ml/m2 6. The right atrium is moderately enlarged. 7. The aortic valve is trileaflet, and appears structurally normal. No aortic stenosis or regurgitati on. 8. Mild mitral regurgitation is present. 9. Moderate tricuspid regurgitation present. 10. There is severe pulmonary hypertension. 11. The inferior vena cava is dilated with poor inspiratory collapse which is consistent with estimat ed right atrial pressure of 20 mmHg. PLASTIC PRINTER: Vanessa Calhoun RDCS
--- NOTE | 2021-03-03 13:49 | P.CRDCN ---
History of Present Illness History of present illness: HISTORY OF PRESENTING ILLNESS This is a pleasant 61-year-old male past medical history significant for chronic nicotine dependence, nonischemic cardiomyopathy, persistent atrial fibrillation status post AV jay ablation 2019 on Coumadin, by the pacemaker COPD. He follows in the office with Dr. Garduno. We have been asked to see in consultation for hypoxia. Patient is seen and examined in the emergency department. patient presents to the emergency department with worsening shortness of breath over the past 2-3 days he also has a productive cough with clear sputum. Also endorses worsening wheezing. He states his symptoms started about a week ago, but have progressed. He denies any chest pain, palpitations, lightheadedness, dizziness, syncope. He denies any bleeding in his urine or stool. He denies symptoms of orthopnea or PND. He is a current every day smoker, currently has decreased to 2-3 cigarrettes per day. Denies alcohol or illicit drug use. He did have lower extremity edema in the left leg, but this resolved. Patient recently had an echocardiogram in the office 01/22/2021 revealed EF 55- 60%, LA is severely dilated moderate concentric left ventricular hypertrophy, m ild mitral regurgitation, moderate tricuspid regurgitation moderate increased pulmonary artery systolic pressure. DIAGNOSTICS EKG reveals atrial fibrillation heart rate 65 Telemetry tracings indicate atrial fibrillation with controlled ventricular rates. Chest xray- hyperinflation, scattered parenchymal changes. Venous Dopplers of the left lower extremity were negative for DVT Chest CT was negative for acute PE. Minimal bibasilar dependent opacities. Echocardiogram was performed yesterday 03/02 with no change from echo in the office. Revealed an EF 55-60%, LA severely dilated, RA is moderately enlarged, mild mitral regurgitation moderate tricuspid regurgitation,severe pulmonary hypertension. RVSP 58mmHg cardiac catheterization 05/2010 revealed 30-40% OM branch stenosis, diagonal 50- 60% stenosis Laboratory reviewed, WBC 6.6, hemoglobin 16.2, platelets 156, sodium 136, potassium 5.0, BUN 9, serum creatinine 0.6, troponin negative 3, proBNP 342, COVID-19 PCR negative, INR 3.9 Current home cardiac medications include Coumadin 6 mg nightly, spironolactone 25 mg daily, Toprol 100 mg daily, losartan 50 mg nightly REVIEW OF SYSTEMS At the time of my exam: CONSTITUTIONAL: Denies fever or chills. CARDIOVASCULAR: Denies chest pain, +shortness of breath, DEnies orthopnea, PND or palpitations. RESPIRATORY: + productive cough. +clear sputum GASTROINTESTINAL: Denies abdominal pain, diarrhea, constipation, nausea or vomiting. MUSCULOSKELETAL: Denies myalgias. NEUROLOGIC: Denies numbness, tingling, headacbe or weakness. ENDOCRINE: Denies fatigue, weight change, polydipsia or polyurina. GENITOURINARY: Denies burning, hematuria or urgency with micturation. HEMATOLOGIC: Denies history of anemia or bleeding. PHYSICAL EXAMINATION blood pressure 125/71, heart rate 60, afebrile, maintaining oxygen saturations on 5 L nasal cannula CONSTITUTIONAL: No apparent distress. HEENT: Head is normocephalic. Pupils are equal, round. Sclerae anicteric. Mucous membranes of the mouth are moist. No JVD. No carotid bruit. CHEST EXAMINATION: Lungs are diminished bilaterally to auscultation. No chest wall tenderness is noted on palpation or with deep breathing. HEART EXAMINATION: Irregular rate and rhythm. S1, S2 heard. No murmurs, gallops or rub. ABDOMEN: Soft, nontender. Positive bowel sounds. EXTREMITIES: 2+ peripheral pulses, no lower extremity edema and no calf tenderness. NEUROLOGIC EXAMINATION: Patient is awake, alert and oriented x3. ASSESSMENT Shortness of breath, Hypoxia, appears more pleuritic in nature COPD Exacerbation Chronic nicotine dependence History of nonischemic cardiomyopathy- patient euvolemic on exam Persistent atrial fibrillation status post AV jay ablation on Coumadin, patient is currently rate controlled BiV pacemaker implantation PLAN From a cardiology perspective, no further cardiac workup Continue coumadin, daily INR Continue home cardiac medications. Further recommendations based on clinical course Nurse Practitioner note has been reviewed, I agree with a documented findings and plan of care. Patient was seen and examined. Past Medical History Past Medical History: Atrial Flutter, Hyperlipidemia, Hypertension, Osteoarthritis (OA), Seizure Disorder Additional Past Medical History / Comment(s): EPILEPSY (TOOK DILANTIN, LAST SEIZURE 40 YERS AGO) "OCC HEADACHES", intermittent constipation/diarrhea, see Dr Garduno H & P History of Any Multi-Drug Resistant Organisms: None Reported Past Surgical History: Heart Catheterization, Tonsillectomy Additional Past Surgical History / Comment(s): ORIF RIGHT HIP, COLONOSCOPY, HEMORROIDECTOMY, SX FOR UNDESCENDED TESTICLE. Past Anesthesia/Blood Transfusion Reactions: No Reported Reaction Past Psychological History: Depression Smoking Status: Current every day smoker Past Alcohol Use History: Occasional Past Drug Use History: Marijuana - Past Family History Father Family Medical History: Cancer Additional Family Medical History / Comment(s): COLON Mother Family Medical History: Myocardial Infarction ([place]) Medications and Allergies Home Medications Medication Instructions Recorded Confirmed Type Spironolactone [Aldactone] 25 mg PO DAILY #30 tab 02/16/17 03/02/21 Rx Losartan [Cozaar] 50 mg PO HS 03/02/21 03/02/21 History Metoprolol Succinate (ER) [Toprol 100 mg PO DAILY 03/02/21 03/02/21 History Xl] Warfarin Sodium 6 mg PO HS 03/02/21 03/02/21 History Allergies Allergy/AdvReac Type Severity Reaction Status Date / Time amoxicillin Allergy Rash/Hives Verified 03/02/21 14:04 Penicillins Allergy Rash/Hives Verified 03/02/21 14:04 Physical Exam Vitals: Vital Signs Temp Pulse Pulse Resp BP BP Pulse Ox 03/03/21 10:53 60 14 03/03/21 10:45 60 16 93 L 03/03/21 07:56 97.9 F 66 16 125/71 91 L 03/03/21 06:25 60 18 93 L 03/03/21 04:53 97.6 F 61 18 122/71 91 L 03/03/21 02:58 72 18 91 L 03/03/21 01:42 70 18 90 L 03/03/21 00:50 68 03/03/21 00:40 67 03/03/21 00:23 67 20 90 L 03/02/21 23:10 98.2 F 74 18 131/76 90 L 03/02/21 21:07 71 18 90 L 03/02/21 20:08 73 20 128/69 89 L 03/02/21 19:44 70 03/02/21 19:27 68 03/02/21 19:06 90 L 03/02/21 18:36 98.9 F 69 18 140/67 91 L 03/02/21 18:15 69 18 137/73 89 L 03/02/21 16:24 70 03/02/21 16:00 65 03/02/21 14:25 60 09/20/21 14:18 63 Intake and Output 03/02/21 03/03/21 03/03/21 22:59 06:59 14:59 Intake Total 472 Balance 472 Intake: Oral 472 Results 03/03/21 04:24 03/03/21 04:24 Cardiac Enzymes 03/02/21 03/02/21 Range/Units 19:49 23:13 Troponin I <0.012 <0.012 (0.000-0.034) ng/mL Coagulation 03/03/21 Range/Units 04:24 PT 37.7 H (9.0-12.0) sec CBC 03/03/21 Range/Units 04:24 WBC 6.6 (3.8-10.6) k/uL RBC 4.90 (4.30-5.90) m/uL Hgb 16.2 (13.0-17.5) gm/dL Hct 52.6 (39.0-53.0) % Plt Count 156 (150-450) k/uL Comprehensive Metabolic Panel 03/03/21 Range/Units 04:24 Sodium 136 L (137-145) mmol/L Potassium 5.0 (3.5-5.1) mmol/L Chloride 97 L (98-107) mmol/L Carbon Dioxide 33 H (22-30) mmol/L BUN 9 (9-20) mg/dL Creatinine 0.61 L (0.66-1.25) mg/dL Glucose 181 H (74-99) mg/dL Calcium 9.0 (8.4-10.2) mg/dL Current Medications Generic Name Dose Route Start Last Admin Trade Name Freq PRN Reason Stop Dose Admin Hydrocodone Bitart/Acetaminophen 1 each 03/02/21 21:25 03/02/21 22:54 Hydrocodone/Apap 5-325mg 1 Each Tab PO 1 each Q4HR PRN Administration Pain Albuterol/Ipratropium 3 ml 03/02/21 20:00 03/03/21 10:44 Ipratropium-Albuterol 3 Ml Neb INHALATION 3 ml RT-Q4H LIEN Administration Albuterol/Ipratropium 3 ml 03/03/21 07:34 Ipratropium-Albuterol 3 Ml Neb INHALATION RT-Q2H PRN Shortness Of Breath Or Wheezing Budesonide 1 mg 03/03/21 08:00 03/03/21 07:38 Budesonide 1 Mg/2 Ml Nebu INHALATION Not Given RT-BID LIEN Formoterol Fumarate 20 mcg 03/03/21 08:00 03/03/21 07:38 Formoterol Fumarate 20 Mcg/2 Ml Nebu INHALATION Not Given RT-BID LIEN Levofloxacin 500 mg 03/03/21 09:00 03/03/21 08:34 Levofloxacin 500 Mg Tab PO 03/10/21 09:01 500 mg DAILY LIEN Administration Losartan Potassium 50 mg 03/02/21 21:00 03/02/21 20:11 Losartan 50 Mg Tab PO 50 mg HS LIEN Administration Methylprednisolone Sodium Succinate 60 mg 03/02/21 18:00 03/03/21 12:38 Methylprednisolone Sod Succi 125 Mg/2 Ml Vial IV 60 mg Q6HR LIEN Administration Metoprolol Succinate 100 mg 03/03/21 09:00 03/03/21 08:34 Metoprolol Succinate (Er) 100 Mg Tab.Er.24h PO 100 mg DAILY LIEN Administration Miscellaneous Information 1 each 03/02/21 17:48 Warfarin Per Pharmacy MISCELLANE DIRECTED PRN Per Protocol Protocol Nicotine 1 patch 03/03/21 09:00 03/03/21 08:34 Nicotine 14mg/24hr Patch TRANSDERM 1 patch DAILY LIEN Administration Warfarin Sodium 0 mg 03/03/21 18:00 Warfarin 0.5 Mg Tab PO 03/03/21 18:01 ONCE ONE Intake and Output 03/02/21 03/03/21 03/03/21 22:59 06:59 14:59 Intake Total 472 Balance 472 Intake: Oral 472 03/03/21 04:24 03/03/21 04:24
[2021-03-03] MEDS ORDERED: WARFARIN 0.5 MG TAB PO ONE (18:00)
[2021-03-03] MEDS: LOSARTAN 50 MG TAB PO SCH (21:33)
[2021-03-03] MEDS: HYDROcodone/APAP 5-325MG 1 EACH TAB PO PRN (21:40)
[2021-03-04] MEDS: methylPREDNISolone SOD SUCCI 125 MG/2 ML VIAL IV SCH ×3 (05:26→17:27)
[2021-03-04] MEDS: LEVOFLOXACIN 500 MG TAB PO SCH (07:30)
[2021-03-04] MEDS: NICOTINE 14MG/24HR PATCH TRANSDERM SCH (07:31)
[2021-03-04 07:38] LABS: INR 2.5 (<1.2)
[2021-03-04] MEDS: METOPROLOL SUCCINATE (ER) 100 MG TAB.ER.24H PO SCH (08:23)
[2021-03-04] MEDS: FORMOTEROL FUMARATE 20 MCG/2 ML NEBU INHALATION SCH ×2 (08:56→20:40)
[2021-03-04] MEDS: IPRATROPIUM-ALBUTEROL 3 ML NEB INHALATION SCH ×4 (08:56→20:40)
[2021-03-04] MEDS: BUDESONIDE 1 MG/2 ML NEBU INHALATION SCH ×2 (08:56→20:40)
--- NOTE | 2021-03-04 11:19 | P.PN ---
Subjective Progress Note Date: 03/04/21 Principal diagnosis: COPD exacerbation 61-year-old male, with a history of atrial fibrillation. The patient is a heavy smoker, he started smoking at age 11. He continues to smoke up to this day. The patient was seen in the emergency room on March 02, complaining of shortness of breath. The patient likely has pretty severe COPD based on his symptomatology, his smoking history, and his laboratory data. The patient did receive the COVID vaccine. The patient admits to complaints of shortness of breath, chest tightness, coughing, and wheezing. He is coughing up some phlegm. The patient has never seen a lung doctor in the past. The patient sees a family doctor in [place]. The patient denies coughing up blood. The patient's chest x-ray had nothing acute, and the CT angiogram was negative for pulmonary embolism, as well as anything acute. I did tell the patient that he'll need outpatient follow-up for a complete pulmonary function test, and 6 minute walk distance, once discharged from the hospital. The patient has a history of atrial fibrillation/flutter, hyperlipidemia, hypertension, osteoarthritis, seizure disorder, his had a previous ablation. White count 6.6, hemoglobin 16.2, hematocrit 52.6, and platelet count was normal. The patient's PT and INR were 37.7 and 3.9 respectively. A blood gas was done in the emergency department yesterday showed a pO2 of 82, pCO2 of 55, and a pH is 7.40. His blood gases insistent with a mixed acid-base disturbance including a respiratory acidosis and metabolic alkalosis. The patient is clearly a CO2 r etainer. Sodium 136, potassium 5, chlorides 97, CO2 33, anion gap 6, BUN 19, creatinine 0.61. Troponins were negative 3. Coronavirus testing was negative. The patient is seen today 03/04/2021 in follow-up in the regular medical floor. He is currently sitting up in a chair at the bedside. Awake and alert in no acute distress. He is breathing a bit easier today compared to yesterday. Maintaining O2 saturations in the 90s on 4 L/m per nasal cannula. Blood cultures reveal no growth. INR 2.5. He remains on DuoNeb inhalations, Pulmicort and Perforomist inhalations, IV Solu-Medrol. Empiric antibiotics in the form of Levaquin. Anticoagulated with warfarin. NicoDerm patch in place. Objective - Vital Signs Vital signs: Vital Signs Temp 98.1 F 03/04/21 08:00 Pulse 78 03/04/21 09:22 Resp 14 03/04/21 08:00 BP 124/75 03/04/21 08:00 Pulse Ox 90 L 03/04/21 08:58 Intake & Output 03/03/21 03/04/21 03/04/21 18:59 06:59 18:59 Intake Total 472 Balance 472 Weight 99.79 kg Intake: Oral 472 Other: # Voids 1 2 - Exam GENERAL EXAM: Alert, pleasant 61-year-old gentleman, on 4 L nasal cannula, comfortable in no apparent distress. HEAD: Normocephalic. EYES: Normal reaction of pupils, equal size. NOSE: Clear with pink turbinates. THROAT: No erythema or exudates. NECK: No masses, no JVD. CHEST: No chest wall deformity. LUNGS: Equal air entry with end expiratory wheeze, diminished. CVS: S1 and S2 normal with no audible murmur, regular rhythm. ABDOMEN: No hepatosplenomegaly, normal bowel sounds, no guarding or rigidity. SPINE: No scoliosis or deformity SKIN: No rashes CENTRAL NERVOUS SYSTEM: No focal deficits, tone is normal in all 4 extremities. EXTREMITIES: There is no peripheral edema. No clubbing, no cyanosis. Periphe ral pulses are intact. - Labs CBC & Chem 7: 03/03/21 04:24 03/03/21 04:24 Labs: Abnormal Lab Results - Last 24 Hours (Table) 03/04/21 Range/Units 06:42 PT 24.0 H (9.0-12.0) sec INR 2.5 H (<1.2) Microbiology - Last 24 Hours (Table) 03/02/21 12:56 Blood Culture - Preliminary Blood No Growth after 24 hours 03/02/21 12:45 Blood Culture - Preliminary Blood No Growth after 24 hours Assessment and Plan Assessment: 1 Acute hypoxemic respiratory failure secondary to an acute exacerbation of chronic obstructive pulmonary disease 2 Chronic and ongoing tobacco dependence 3 History of atrial flutter 4 Hyperlipidemia 5 Hypertension 6 Osteoarthritis 7 History of seizure disorder 8 Status post permanent pacemaker implantation Plan: The patient was seen and evaluated by Dr. Thomas. Continue the current treatment plan. Again educated regarding the importance of complete smoking cessation. NicoDerm patch in place. Titrate down the FiO2 as tolerated We will continue to follow and make further recommendations based on her clinical status I, the cosigning physician, performed a history & physical examination of the patient. Lungs sounds bilateral end expiratory wheeze, diminished. Maintaining O2 saturations in the 90s on 4 L/m per nasal cannula. I discussed the assessment and plan of care with my nurse practitioner, Keri Bloom. I attest to the above note as dictated by her.
--- NOTE | 2021-03-04 11:41 | P.PN ---
Subjective This is a pleasant 61-year-old male past medical history significant for chronic nicotine dependence, nonischemic cardiomyopathy, persistent atrial fibrillation status post AV jay ablation 2019 on Coumadin, by the pacemaker COPD. He follows in the office with Dr. Garduno. We have been asked to see in consultation for hypoxia. Patient presents to the emergency department 03/03/21 with worsening shortness of breath over the past 2-3 days he also has a productive cough with clear sputum. Also endorses worsening wheezing. He states his symptoms started about a week ago, but have progressed. He is a current every day smoker, currently has decreased to 2-3 cigarrettes per day. Denies alcohol or illicit drug use. He did have lower extremity edema in the left leg, but this resolved. Patient recently had an echocardiogram in the office 01/22/2021 revealed EF 55-60%, LA is severely dilated moderate concentric left ventricular hypertrophy, mild mitral regurgitation, moderate tricuspid regurgitation moderate increased pulmonary artery systolic pressure. Patient seen and examined at bedside, no acute distress. He states his shortness of breath has improved. Blood pressure 124/75, heart rate 72, afebrile, maintaining oxygen saturations on 6 L nasal cannula. He was then atrial fibrillation with controlled rates. Laboratory data reviewed WBC 6.6, hemoglobin 16, platelets 156, sodium 136, potassium 5.0, BUN 9, serum creatinine 0.6, troponin negative 3, INR 2.5. Workup this admission included: Venous Dopplers of the left lower extremity were negative for DVT Chest CT was negative for acute PE. Minimal bibasilar dependent opacities. Echocardiogram was performed yesterday 03/02 with no change from echo in the office. Revealed an EF 55-60%, LA severely dilated, RA is moderately enlarged, mild mitral regurgitation moderate tricuspid regurgitation,severe pulmonary hypertension. RVSP 58mmHg CONSTITUTIONAL: No apparent distress. HEENT: Neck Supple No JVD. CHEST EXAMINATION: Lungs are diminished, with wheezes bilaterally to aus cultation. No chest wall tenderness is noted on palpation or with deep breathing. HEART EXAMINATION: Irregular rate and rhythm. S1, S2 heard. Systolic murmur. ABDOMEN: Soft, nontender. Positive bowel sounds. EXTREMITIES: 2+ peripheral pulses, no lower extremity edema and no calf tenderness. NEUROLOGIC EXAMINATION: Patient is awake, alert and oriented x3. ASSESSMENT Shortness of breath, Hypoxia, appears more pleuritic in nature COPD Exacerbation Chronic nicotine dependence History of nonischemic cardiomyopathy- patient euvolemic on exam Persistent atrial fibrillation status post AV jay ablation on Coumadin, patient is currently rate controlled BiV pacemaker implantation PLAN From a cardiology perspective, no further cardiac workup Pulmonary following Continue coumadin, daily INR Continue home cardiac medications. We will follow the patient as needed. Please reach out with questions or concerns. Patient to follow up with Dr. Garduno in the office. Nurse Practitioner note has been reviewed, I agree with a documented findings and plan of care. Patient was seen and examined Objective - Vital Signs Vital signs: Vital Signs Temp 98.1 F 03/04/21 08:00 Pulse 78 03/04/21 09:22 Resp 14 03/04/21 08:00 BP 124/75 03/04/21 08:00 Pulse Ox 90 L 03/04/21 08:58 Intake & Output 03/03/21 03/04/21 03/04/21 18:59 06:59 18:59 Intake Total 472 Balance 472 Weight 99.79 kg Intake: Oral 472 Other: # Voids 1 2 - Labs CBC & Chem 7: 03/03/21 04:24 03/03/21 04:24 Labs: Abnormal Lab Results - Last 24 Hours (Table) 03/04/21 Range/Units 06:42 PT 24.0 H (9.0-12.0) sec INR 2.5 H (<1.2) Microbiology - Last 24 Hours (Table) 03/02/21 12:56 Blood Culture - Preliminary Blood No Growth after 24 hours 03/02/21 12:45 Blood Culture - Preliminary Blood No Growth after 24 hours
[2021-03-04 11:51] LABS: Glucose,Whole Blood 134 mg/dL (75-99)
[2021-03-04] MEDS: INSULIN ASPART (NovoLOG) 100 UNIT/ML VIAL SQ SCH ×3 (11:53→20:58)
--- NOTE | 2021-03-04 12:38 | P.PN ---
Subjective Progress Note Date: 03/04/21 Pt reports significant improvement in dyspnea, howver, still short of breath on exertion. Still requiring 4L NC. Objective - Vital Signs Vital signs: Vital Signs Temp 98.1 F 03/04/21 08:00 Pulse 82 03/04/21 12:29 Resp 14 03/04/21 08:00 BP 124/75 03/04/21 08:00 Pulse Ox 90 L 03/04/21 08:58 Intake & Output 03/03/21 03/04/21 03/04/21 18:59 06:59 18:59 Intake Total 472 Balance 472 Weight 99.79 kg Intake: Oral 472 Other: # Voids 1 2 - Exam Gen: awake, alert HEENT: normocephalic, atraumatic, good hearing acuity, moist mucous membranes Resp: impaired air exchange, crackles in Left posterior lung field > right posterior lung field, no wheezing CVS: good distal perfusion x 4, RRR, no murmurs GI: soft, NTTP, ND : no SPT, no CVAT, ryan catheter not present MSK: no pitting edema, no clubbing Neuro: non-focal, moving all extremities Psych: cooperative, euthymic mood - Labs CBC & Chem 7: 03/03/21 04:24 03/03/21 04:24 Labs: Abnormal Lab Results - Last 24 Hours (Table) 03/04/21 03/04/21 Range/Units 06:42 11:50 PT 24.0 H (9.0-12.0) sec INR 2.5 H (<1.2) POC Glucose (mg/dL) 134 H (75-99) mg/dL Microbiology - Last 24 Hours (Table) 03/02/21 12:56 Blood Culture - Preliminary Blood No Growth after 24 hours 03/02/21 12:45 Blood Culture - Preliminary Blood No Growth after 24 hours Assessment and Plan Assessment: Acute respiratory failure with hypoxia and hypercarbia Acute COPD exacerbation Chronic Systolic cardiomyopathy Previous ejection fraction of 25-30% -Oxygenation to be administered and titrated as needed to maintain SPO2 equal to or greater than 92% -Telemetry monitoring. -Continuous Pulse-oximetry -Duonebs Scheduled and as needed for SOB and/or wheezing -Incentive Spirometry -Steroids: Solu-Medrol -Consult to pulmonology -Consults cardiology -Repeat echocardiogram -Will likely need home oxygen Left lower extremity swelling -Venous Doppler left lower extremity negative for DVT. Chronic persistent Atrial fibrillation on anticoagulation with Coumadin status post pacemaker/defibrillator placement Supratherapeutic INR -INR remains supratherapeutic at 3.9 -Coumadin being held secondary to supratherapeutic levels, we will resume once INR is less than 3 and pharmacy to dose based on these levels. Hypertension -Monitor vital signs and continue daily medication regimen with losartan and metoprolol. Nicotine dependence -Continue to encourage and educate patient on the benefits of smoking cessation and risks of continued use up to and including . The patient is admitted with an anticipated greater than 2 midnight stay for evaluation of Acute respiratory failure with hypoxia and hypercarbia. CODE STATUS: Full code DVT prophylaxis: Coumadin Anticipated discharge date: Clinical course to determine Anticipated discharge place: Home A total of 45 minutes was spent on the care of this complex patient more than 50% of the time was spent in counseling and care coordination.
--- NOTE | 2021-03-04 15:16 | CDI ---
Documentation Clarification Form Date: 03/04/2021 03:03:27 PM From: Eileen MontanaMARJORIE webster, CCDS Admit Date: 03/02/2021 03:18:00 PM Patient Name: Dandre Sanz Visit Number: [id number] Discharge Date: ATTENTION: The Clinical Documentation Specialists (CDI) and [facility] Coding Staff appreciate your assistance in clarifying documentation. Please respond to the clarification below the line at the bottom and electronically sign. The CDI & [facility] Coding staff will review the response and follow-up if needed. Please note: Queries are made part of the Legal Health Record. If you have any questions, please contact the author of this message via ITS. Dr. Stan Reddy: Heart Failure is documented in the 03/02 History & Physical: Repeat ECHO to reassess EF and to see if RVSP has increased indicating secondary pulmonary hypertension which could be related to either left heart failure or severe COPD. Chronic systolic cardiomyopathy with previous EF 25-30% is documented in the 03/04 Attending Progress Note. Additional information regarding the heart failure is requested. History/Risk Factors per the 03/02 History & Physical: Hypertension, Hyperlipidemia, Atrial Fibrillation on Coumadin status post Pacemaker/Defibrillator, Epilepsy, Long time smoker. Clinical Indicators: Presented to the ED on 03/02 with SOB & worsening cough, swelling in left leg & calf tenderness. ED Clinical Impression: Acute Exacerbation COPD 03/02 VS: T 98.1, P 67, R 18 (sob), BP 148/81, PO 76 RA, BMI: 28.2 03/02 LAB: PT 43.1, INR 4.5, APTT 36.6, CO2 32, BUN 7, Cr 0.58, Glucose 112 03/02 Blood gas: pCO2 55, pO2 82, HCO3 34, Total CO2 36 COVID NEGATIVE 03/02 RAD: CXR: No evidence of acute pulmonary disease. CT chest: No PE, Minimal bibasilar dependent opacities, probably atelectasis. Developing infiltrates. Mild emphysema. 03/03 ECHO: Pacer wires, Severe concentric LVH, Left ventricular systolic function is normal w/EF 55-60%, Right ventricle severely enlarged, Mild MR, Mod TR, Severe pulmonary hypertension. Treatment 03/02: INH Duoneb, IV Solumedrol, O2 2Lnc In your professional opinion, can you please clarify the Acuity & Type of CHF if present? [ ] Acute Diastolic Heart Failure [ x ] Chronic Diastolic Heart Failure [ ] Acute on Chronic Diastolic Heart Failure [ ] Heart Failure is ruled out [ ] Other, please specify [ ] Unable to determine (Template Last Revised: July 2020) MTDD
[2021-03-04 17:08] LABS: Glucose,Whole Blood 109 mg/dL (75-99)
[2021-03-04] MEDS ORDERED: WARFARIN 3 MG TAB PO ONE (18:00)
[2021-03-04 20:18] LABS: Glucose,Whole Blood 181 mg/dL (75-99)
[2021-03-04] MEDS: LOSARTAN 50 MG TAB PO SCH (20:58)
[2021-03-05] MEDS: methylPREDNISolone SOD SUCCI 125 MG/2 ML VIAL IV SCH ×4 (01:01→18:12)
[2021-03-05] MEDS: HYDROcodone/APAP 5-325MG 1 EACH TAB PO PRN ×2 (05:47→20:55)
[2021-03-05 06:39] LABS: INR 1.6 (<1.2); Prothrombin Time 15.8 sec (9.0-12.0)
[2021-03-05 07:26] LABS: Glucose,Whole Blood 122 mg/dL (75-99)
[2021-03-05] MEDS: INSULIN ASPART (NovoLOG) 100 UNIT/ML VIAL SQ SCH ×4 (08:12→20:55)
[2021-03-05] MEDS: NICOTINE 14MG/24HR PATCH TRANSDERM SCH (08:17)
[2021-03-05] MEDS: LEVOFLOXACIN 500 MG TAB PO SCH (08:17)
[2021-03-05] MEDS: METOPROLOL SUCCINATE (ER) 100 MG TAB.ER.24H PO SCH (08:17)
[2021-03-05] MEDS: BUDESONIDE 1 MG/2 ML NEBU INHALATION SCH ×2 (09:23→19:20)
[2021-03-05] MEDS: IPRATROPIUM-ALBUTEROL 3 ML NEB INHALATION SCH ×4 (09:23→19:20)
[2021-03-05] MEDS: FORMOTEROL FUMARATE 20 MCG/2 ML NEBU INHALATION SCH ×2 (09:23→19:20)
[2021-03-05 11:39] LABS: Glucose,Whole Blood 145 mg/dL (75-99)
--- NOTE | 2021-03-05 12:30 | P.PN ---
Subjective Progress Note Date: 03/05/21 Pt is improving in terms of dyspnea on exertion. Was able to do push ups and walk around his room today with no dyspnea. Still w O2 requirement, but improving. Objective - Vital Signs Vital signs: Vital Signs Temp 97.7 F 03/05/21 08:00 Pulse 60 03/05/21 12:12 Resp 16 03/05/21 12:12 BP 113/72 03/05/21 08:00 Pulse Ox 92 L 03/05/21 12:04 Intake & Output 03/04/21 03/05/21 03/05/21 18:59 06:59 18:59 Intake Total 960 Balance 960 Intake: Oral 960 Other: Voiding Method Toilet # Voids 3 - Exam Gen: awake, alert HEENT: normocephalic, atraumatic, good hearing acuity, moist mucous membranes Resp: impaired air exchange, crackles in Left posterior lung field > right posterior lung field, no wheezing CVS: good distal perfusion x 4, RRR, no murmurs GI: soft, NTTP, ND : no SPT, no CVAT, ryan catheter not present MSK: no pitting edema, no clubbing Neuro: non-focal, moving all extremities Psych: cooperative, euthymic mood - Labs CBC & Chem 7: 03/03/21 04:24 03/03/21 04:24 Labs: Abnormal Lab Results - Last 24 Hours (Table) 03/04/21 03/04/21 03/05/21 Range/Units 16:49 20:16 06:10 PT 15.8 H (9.0-12.0) sec INR 1.6 H (<1.2) POC Glucose (mg/dL) 109 H 181 H (75-99) mg/dL 03/05/21 03/05/21 Range/Units 07:24 11:37 PT (9.0-12.0) sec INR (<1.2) POC Glucose (mg/dL) 122 H 145 H (75-99) mg/dL Microbiology - Last 24 Hours (Table) 03/02/21 12:45 Blood Culture - Preliminary Blood No Growth after 48 hours 03/02/21 12:56 Blood Culture - Preliminary Blood No Growth after 48 hours Assessment and Plan Assessment: Acute respiratory failure with hypoxia and hypercarbia Acute COPD exacerbation Chronic Systolic cardiomyopathy Previous ejection fraction of 25-30% -Oxygenation to be administered and titrated as needed to maintain SPO2 equal to or greater than 92% -Telemetry monitoring. -Continuous Pulse-oximetry -Duonebs Scheduled and as needed for SOB and/or wheezing -Incentive Spirometry -Steroids: Solu-Medrol -Consult to pulmonology -Consults cardiology -Repeat echocardiogram -Will likely need home oxygen Left lower extremity swelling -Venous Doppler left lower extremity negative for DVT. Chronic persistent Atrial fibrillation on anticoagulation with Coumadin status post pacemaker/defibrillator placement Supratherapeutic INR -INR remains supratherapeutic at 3.9 -Coumadin being held secondary to supratherapeutic levels, we will resume once INR is less than 3 and pharmacy to dose based on these levels. Hypertension -Monitor vital signs and continue daily medication regimen with losartan and metoprolol. Nicotine dependence -Continue to encourage and educate patient on the benefits of smoking cessation and risks of continued use up to and including . The patient is admitted with an anticipated greater than 2 midnight stay for evaluation of Acute respiratory failure with hypoxia and hypercarbia. CODE STATUS: Full code DVT prophylaxis: Coumadin Anticipated discharge date: Clinical course to determine Anticipated discharge place: Home A total of 45 minutes was spent on the care of this complex patient more than 50% of the time was spent in counseling and care coordination.
--- NOTE | 2021-03-05 15:27 | P.PN ---
Subjective Progress Note Date: 03/05/21 Principal diagnosis: COPD exacerbation 61-year-old male, with a history of atrial fibrillation. The patient is a heavy smoker, he started smoking at age 11. He continues to smoke up to this day. The patient was seen in the emergency room on March 02, complaining of shortness of breath. The patient likely has pretty severe COPD based on his symptomatology, his smoking history, and his laboratory data. The patient did receive the COVID vaccine. The patient admits to complaints of shortness of breath, chest tightness, coughing, and wheezing. He is coughing up some phlegm. The patient has never seen a lung doctor in the past. The patient sees a family doctor in [place]. The patient denies coughing up blood. The patient's chest x-ray had nothing acute, and the CT angiogram was negative for pulmonary embolism, as well as anything acute. I did tell the patient that he'll need outpatient follow-up for a complete pulmonary function test, and 6 minute walk distance, once discharged from the hospital. The patient has a history of atrial fibrillation/flutter, hyperlipidemia, hypertension, osteoarthritis, seizure disorder, his had a previous ablation. White count 6.6, hemoglobin 16.2, hematocrit 52.6, and platelet count was normal. The patient's PT and INR were 37.7 and 3.9 respectively. A blood gas was done in the emergency department yesterday showed a pO2 of 82, pCO2 of 55, and a pH is 7.40. His blood gases insistent with a mixed acid-base disturbance including a respiratory acidosis and metabolic alkalosis. The patient is clearly a CO2 r etainer. Sodium 136, potassium 5, chlorides 97, CO2 33, anion gap 6, BUN 19, creatinine 0.61. Troponins were negative 3. Coronavirus testing was negative. The patient is seen today 03/04/2021 in follow-up in the regular medical floor. He is currently sitting up in a chair at the bedside. Awake and alert in no acute distress. He is breathing a bit easier today compared to yesterday. Maintaining O2 saturations in the 90s on 4 L/m per nasal cannula. Blood cultures reveal no growth. INR 2.5. He remains on DuoNeb inhalations, Pulmicort and Perforomist inhalations, IV Solu-Medrol. Empiric antibiotics in the form of Levaquin. Anticoagulated with warfarin. NicoDerm patch in place. The patient is seen today 03/05/2021 follow-up on the regular medical floor. He is sitting up in chair at the bedside. Awake and alert in no acute distress. He is breathing easier. He is maintaining O2 saturations in the low 90s on 3 L/m per nasal cannula. Afebrile. Hemodynamically stable. Feeling back to his baseline. Blood cultures reveal no growth. Blood sugar 145. He remains on DuoNeb inhalations, Pulmicort and Perforomist inhalations, IV Solu-Medrol. Empiric antibiotics in the form of Levaquin. Anticoagulated with warfarin. NicoDerm patch in place. Objective - Vital Signs Vital signs: Vital Signs Temp 97.4 F L 03/05/21 14:00 Pulse 68 03/05/21 15:08 Resp 18 03/05/21 14:00 BP 126/79 03/05/21 14:00 Pulse Ox 91 L 03/05/21 14:00 Intake & Output 03/04/21 03/05/21 03/05/21 18:59 06:59 18:59 Intake Total 960 Balance 960 Intake: Oral 960 Other: Voiding Method Toilet # Voids 3 - Exam GENERAL EXAM: Alert, pleasant 61-year-old gentleman, on 3 L nasal cannula, comfortable in no apparent distress. HEAD: Normocephalic. EYES: Normal reaction of pupils, equal size. NOSE: Clear with pink turbinates. THROAT: No erythema or exudates. NECK: No masses, no JVD. CHEST: No chest wall deformity. LUNGS: Equal air entry with end expiratory wheeze, diminished. CVS: S1 and S2 normal with no audible murmur, regular rhythm. ABDOMEN: No hepatosplenomegaly, normal bowel sounds, no guarding or rigidity. SPINE: No scoliosis or deformity SKIN: No rashes CENTRAL NERVOUS SYSTEM: No focal deficits, tone is normal in all 4 extremities. EXTREMITIES: There is no peripheral edema. No clubbing, no cyanosis. Peripheral pulses are intact. - Labs CBC & Chem 7: 03/03/21 04:24 03/03/21 04:24 Labs: Abnormal Lab Results - Last 24 Hours (Table) 03/04/21 03/04/21 03/05/21 Range/Units 16:49 20:16 06:10 PT 15.8 H (9.0-12.0) sec INR 1.6 H (<1.2) POC Glucose (mg/dL) 109 H 181 H (75-99) mg/dL 03/05/21 03/05/21 Range/Units 07:24 11:37 PT (9.0-12.0) sec INR (<1.2) POC Glucose (mg/dL) 122 H 145 H (75-99) mg/dL Microbiology - Last 24 Hours (Table) 03/02/21 12:45 Blood Culture - Preliminary Blood No Growth after 72 hours 03/02/21 12:56 Blood Culture - Preliminary Blood No Growth after 72 hours Assessment and Plan Assessment: 1 Acute hypoxemic respiratory failure secondary to an acute exacerbation of chronic obstructive pulmonary disease 2 Chronic and ongoing tobacco dependence 3 History of atrial flutter 4 Hyperlipidemia 5 Hypertension 6 Osteoarthritis 7 History of seizure disorder 8 Status post permanent pacemaker implantation Plan: The patient was seen and evaluated by Dr. Thomas. Stable for discharge from the pulmonary standpoint Again educated regarding the importance of complete smoking cessation. NicoDerm patch in place. Evaluate for possible home oxygen Complete a prednisone taper starting at 40 mg daily for 4 days Complete a course of antibiotics Initiate Symbicort and albuterol HFA He would benefit from a follow-up visit in our office for full pulmonary function testing I, the cosigning physician, performed a history & physical examination of the patient. Lungs sounds bilateral end expiratory wheeze, diminished. Maintaining O2 saturations in the 90s on 3 L/m per nasal cannula. I discussed the assessment and plan of care with my nurse practitioner, Keri Bloom. I attest to the above note as dictated by her.
[2021-03-05 16:49] LABS: Glucose,Whole Blood 124 mg/dL (75-99)
[2021-03-05] MEDS ORDERED: WARFARIN 3 MG TAB PO ONE (18:00)
[2021-03-05 19:57] LABS: Glucose,Whole Blood 190 mg/dL (75-99)
[2021-03-05] MEDS: LOSARTAN 50 MG TAB PO SCH (20:56)
[2021-03-06] MEDS: methylPREDNISolone SOD SUCCI 125 MG/2 ML VIAL IV SCH ×2 (00:33→06:22)
[2021-03-06 07:03] LABS: INR 1.4 (<1.2); Prothrombin Time 14.5 sec (9.0-12.0)
[2021-03-06 07:08] LABS: Glucose,Whole Blood 130 mg/dL (75-99)
[2021-03-06] MEDS: LEVOFLOXACIN 500 MG TAB PO SCH (07:32)
[2021-03-06] MEDS: NICOTINE 14MG/24HR PATCH TRANSDERM SCH (07:32)
[2021-03-06] MEDS: METOPROLOL SUCCINATE (ER) 100 MG TAB.ER.24H PO SCH (07:33)
[2021-03-06] MEDS: INSULIN ASPART (NovoLOG) 100 UNIT/ML VIAL SQ SCH ×2 (07:41→14:18)
[2021-03-06] MEDS: HYDROcodone/APAP 5-325MG 1 EACH TAB PO PRN (08:14)
[2021-03-06] MEDS: FORMOTEROL FUMARATE 20 MCG/2 ML NEBU INHALATION SCH (08:57)
[2021-03-06] MEDS: BUDESONIDE 1 MG/2 ML NEBU INHALATION SCH (08:57)
[2021-03-06] MEDS: IPRATROPIUM-ALBUTEROL 3 ML NEB INHALATION SCH ×2 (08:57→12:52)
[2021-03-06] MEDS ORDERED: ALBUTEROL NEBULIZED 2.5 MG/3 ML INHALATION PRN (09:12)
[2021-03-06] MEDS ORDERED: predniSONE 20 MG TAB PO SCH (09:30)
[2021-03-06 11:51] LABS: Glucose,Whole Blood 100 mg/dL (75-99)
--- NOTE | 2021-03-06 13:01 | P.DS ---
Providers Date of admission: 03/02/21 15:18 Expected date of discharge: 03/06/21 Attending physician: Terri Garvin DO Consults: 03/02/21 15:22 Consult Physician Stat Consulting Provider: Kelby Thomas Consult Reason/Comments: COPD exacerbation Do you want consulting provider notified?: Yes 03/02/21 18:28 Consult Physician Routine Consulting Provider: Goran Olvera Consult Reason/Comments: Hypoxia, hx of EF 25-30% in 2017 w/ left to right shunting Do you want consulting provider notified?: Yes Primary care physician: Darshana Lainez MD Hospital Course: Acute respiratory failure with hypoxia and hypercarbia Acute COPD exacerbation Chronic Systolic cardiomyopathy Previous ejection fraction of 25-30% Admitted for COPD exacerbation and placed on oxygen, titrated to goal 88-92%. Pulmonary consulted on patient. He was provided steroids, duonebs, levofloxacin. His exercise tolerance improved dramatically, however, he was not able to be weaned off of oxygen. Therefore, he was set up with ambulatory and resting home oxygen. Pt will need to see pulmonary medicine for PFTs as an outpatient. Discharged with 4 days of prednisone, 1 day of levofloxacin, and symbicort/albuterol inhalers. Chronic persistent Atrial fibrillation on anticoagulation with Coumadin status post pacemaker/defibrillator placement Supratherapeutic INR -INR was supratherapeutic at 3.9. Coumadin was held and monitored by pharmacy. I spent 38 minutes coordinating this complex discharge Assessment: Gen: awake, alert HEENT: normocephalic, atraumatic, good hearing acuity, moist mucous membranes Resp: impaired air exchange, crackles in Left posterior lung field > right po sterior lung field, no wheezing CVS: good distal perfusion x 4, RRR, no murmurs GI: soft, NTTP, ND : no SPT, no CVAT, ryan catheter not present MSK: no pitting edema, no clubbing Neuro: non-focal, moving all extremities Psych: cooperative, euthymic mood Patient Condition at Discharge: Good Plan - Discharge Summary New Discharge Prescriptions: New predniSONE [Deltasone] 40 mg PO DAILY #8 tab Albuterol Inhaler [Ventolin Hfa Inhaler] 1 puff INHALATION RT-QID #8 gm Levofloxacin [Levaquin] 500 mg PO DAILY #1 tab Budesonide-Formot 160-4.5 Mcg [Symbicort 160-4.5 Mcg Inhaler] 2 puff INHALATION RT-BID #1 inh Continue Warfarin Sodium 6 mg PO HS Losartan [Cozaar] 50 mg PO HS No Action Spironolactone [Aldactone] 25 mg PO DAILY #30 tab Metoprolol Succinate (ER) [Toprol Xl] 100 mg PO DAILY Discharge Medication List Spironolactone [Aldactone] 25 mg PO DAILY #30 tab 02/16/17 [Rx] Losartan [Cozaar] 50 mg PO HS 03/02/21 [History] Metoprolol Succinate (ER) [Toprol Xl] 100 mg PO DAILY 03/02/21 [History] Warfarin Sodium 6 mg PO HS 03/02/21 [History] Albuterol Inhaler [Ventolin Hfa Inhaler] 1 puff INHALATION RT-QID #8 gm 03/06/21 [Rx] Budesonide-Formot 160-4.5 Mcg [Symbicort 160-4.5 Mcg Inhaler] 2 puff INHALATION RT-BID #1 inh 03/06/21 [Rx] Levofloxacin [Levaquin] 500 mg PO DAILY #1 tab 03/06/21 [Rx] predniSONE [Deltasone] 40 mg PO DAILY #8 tab 03/06/21 [Rx] Follow up Appointment(s)/Referral(s): David Garduno MD [STAFF PHYSICIAN] - 3 Weeks (Office will call you with your appointment.) [facility],Equipment [NON-STAFF] - ([facility] will deliver a portable oxygen tank to the bedside before discharge. Once home, patient needs to call [facility] to arrange delivery of the oxygen concentrator today. ) Kelby Thomas DO [Doctor of Osteopathic Medicine] - 03/24/21 2:45 pm [facility], [NON-STAFF] - ([facility] will call you to arrange your first visit for 24-48 hours after discharge from the hospital. ) Darshana Lainez MD [Primary Care Provider] - 1-2 days (Please call office Tuesday for your appointment. Thank you.)
--- NOTE | 2021-03-06 13:27 | P.PN ---
Subjective Progress Note Date: 03/06/21 Principal diagnosis: COPD exacerbation. COPD exacerbation 61-year-old male, with a history of atrial fibrillation. The patient is a heavy smoker, he started smoking at age 11. He continues to smoke up to this day. The patient was seen in the emergency room on March 02, complaining of shortness of breath. The patient likely has pretty severe COPD based on his symptomatology, his smoking history, and his laboratory data. The patient did receive the COVID vaccine. The patient admits to complaints of shortness of breath, chest tightness, coughing, and wheezing. He is coughing up some phlegm. The patient has never seen a lung doctor in the past. The patient sees a family doctor in [place]. The patient denies coughing up blood. The patient's chest x-ray had nothing acute, and the CT angiogram was negative for pulmonary embolism, as well as anything acute. I did tell the patient that he'll need outpatient follow-up for a complete pulmonary function test, and 6 minute walk distance, once discharged from the hospital. The patient has a history of atrial fibrillation/flutter, hyperlipidemia, hypertension, osteoarthritis, seizure disorder, his had a previous ablation. White count 6.6, hemoglobin 16.2, hematocrit 52.6, and platelet count was normal. The patient's PT and INR were 37.7 and 3.9 respectively. A blood gas was done in the emergency department yesterday showed a pO2 of 82, pCO2 of 55, and a pH is 7.40. His blood gases insistent with a mixed acid-base disturbance including a respiratory acidosis and metabolic alkalosis. The patient is clearly a CO2 retainer. Sodium 136, potassium 5, chlorides 97, CO2 33, anion gap 6, BUN 19, creatinine 0.61. Troponins were negative 3. Coronavirus testing was negative. The patient is seen today 03/04/2021 in follow-up in the regular medical floor. He is currently sitting up in a chair at the bedside. Awake and alert in no acute distress. He is breathing a bit easier today compared to yesterday. Maintaining O2 saturations in the 90s on 4 L/m per nasal cannula. Blood cultures reveal no growth. INR 2.5. He remains on DuoNeb inhalations, Pulmicort and Perforomist inhalations, IV Solu-Medrol. Empiric antibiotics in the form of Levaquin. Anticoagulated with warfarin. NicoDerm patch in place. The patient is seen today 03/05/2021 follow-up on the regular medical floor. He is sitting up in chair at the bedside. Awake and alert in no acute distress. He is breathing easier. He is maintaining O2 saturations in the low 90s on 3 L/m per nasal cannula. Afebrile. Hemodynamically stable. Feeling back to his baseline. Blood cultures reveal no growth. Blood sugar 145. He remains on DuoNeb inhalations, Pulmicort and Perforomist inhalations, IV Solu-Medrol. Empiric antibiotics in the form of Levaquin. Anticoagulated with warfarin. NicoDerm patch in place. Progress note dated 03/06/2021. Currently, the patient's doing much better. The patient might be considered for possible discharge home today. The patient will have to stop smoking. He should also come to the office to be seen for a 6 minute walk distance, and a complete pulmonary function test currently, his been weaned down to 2-3 L nasal cannula. He will be assessed for home oxygen before discharge if in fact he is discharged today. No new laboratory data today. No chest x-ray as yet today. Objective - Vital Signs Vital signs: Vital Signs Temp 98.1 F 03/06/21 07:58 Pulse 68 03/06/21 09:24 Resp 18 03/06/21 07:58 BP 135/77 03/06/21 07:58 Pulse Ox 96 03/06/21 07:58 Intake & Output 03/05/21 03/06/21 03/06/21 18:59 06:59 18:59 Intake Total 525 Balance 525 Intake: Oral 525 Other: Voiding Method Toilet Toilet Toilet # Voids 2 2 - Exam No acute distress, oriented 3. The patient is much improved. Currently on 2 L nasal cannula. HEENT examination is grossly unremarkable. Neck supple. Full range of motion. No adenopathy thyromegaly or neck vein distention. Cardiovascular examination reveals regular rhythm rate. S1-S2 normal. No S3 or S4. No discernible murmur noted. Heart rate 60 bpm. Lungs reveal diminished bilateral breath sounds. Minimal rhonchi and expiratory wheezes. No crackles. Breath sounds equal bilaterally. Breath sounds are much improved since his day of admission. Abdomen soft bowel sounds are heard. No masses or tenderness. Extremities are intact. No cyanosis clubbing or edema. Skin is without rash or lesion. Neurologic examination is brief but nonfocal. - Labs CBC & Chem 7: 03/03/21 04:24 03/03/21 04:24 Labs: Abnormal Lab Results - Last 24 Hours (Table) 03/05/21 03/05/21 03/06/21 Range/Units 16:48 19:56 06:20 PT 14.5 H (9.0-12.0) sec INR 1.4 H (<1.2) POC Glucose (mg/dL) 124 H 190 H (75-99) mg/dL 03/06/21 03/06/21 Range/Units 07:06 11:50 PT (9.0-12.0) sec INR (<1.2) POC Glucose (mg/dL) 130 H 100 H (75-99) mg/dL Microbiology - Last 24 Hours (Table) 03/02/21 12:45 Blood Culture - Preliminary Blood No Growth after 72 hours 03/02/21 12:56 Blood Culture - Preliminary Blood No Growth after 72 hours Assessment and Plan Assessment: Acute exacerbation of COPD. Ongoing tobacco use with nicotine addiction. History of atrial flutter. History of hyperlipidemia. History of hypertension. History of osteoarthritis. History of seizure disorder. Status post pacemaker insertion. Plan: Plan dated 03/03/2021. The patient's placed on albuterol sulfate and ipratropium bromide, 4 times a day and when necessary. In addition, the patient will get Pulmicort 1 mg mixed with formoterol 20 g twice a day. The patient also will get Solu-Medrol, 60 mg every 6 hours. The patient be placed on an oral antibiotic. Chest x-ray does not show anny infiltrate or pneumonia. The patient will need outpatient pulmonary function test and 6 minute walk distance. The patient also gets a nicotine patch. He is counseled about the importance of smoking cessation. Prognosis is guarded. Plan dated 03/06/2021. The patient's Pulmicort and formoterol switched to Symbicort. The patient is also transitioned from Solu-Medrol to prednisone. The patient should follow up with us in the office. He will need a 6 minute walk distance, and a PFT. The patient is also counseled about the importance of smoking cessation. Copies the note will go to the primary. Prognosis is guarded. No additional recommendations are made. Time with Patient: Less than 30
[2021-03-06 14:53] VITALS: BP 123/76; PULSE 67; RESP 16; TEMP 97.4
[2021-03-06] MEDS ORDERED: WARFARIN 5 MG TAB PO ONE (18:00)
[2021-03-06] MEDS ORDERED: SYMBICORT 160-4.5 MCG INHALER INHALATION SCH (20:00)
== END 2021-03-06 16:04 | disposition home or self-care (01) | DRG 190 ==
LOC: EC 11:17 → 4SSUR 15:18
PROVIDERS: ADMIT Internal Medicine; ATTEND Internal Medicine
DX: J43.2 Centrilobular emphysema (principal); J96.02 Acute respiratory failure with hypercapnia; J96.01 Acute respiratory failure with hypoxia; E87.4 Mixed disorder of acid-base balance; I48.19 Other persistent atrial fibrillation; I50.32 Chronic diastolic (congestive) heart failure; I42.8 Other cardiomyopathies; J44.1 Chronic obstructive pulmonary disease with (acute) exacerbation; E78.5 Hyperlipidemia, unspecified; F17.210 Nicotine dependence, cigarettes, uncomplicated; F32.9 Major depressive disorder, single episode, unspecified; M79.89 Other specified soft tissue disorders; I08.1 Rheumatic disorders of both mitral and tricuspid valves; I11.0 Hypertensive heart disease with heart failure; I27.22 Pulmonary hypertension due to left heart disease; G40.909 Epilepsy, unspecified, not intractable, without status epilepticus; M19.90 Unspecified osteoarthritis, unspecified site; Z20.822 Contact with and (suspected) exposure to COVID-19; Z79.01 Long term (current) use of anticoagulants; Z79.899 Other long term (current) drug therapy; Z82.49 Family history of ischemic heart disease and other diseases of the circulatory system; Z95.0 Presence of cardiac pacemaker; Z95.810 Presence of automatic (implantable) cardiac defibrillator
CPT/HCPCS: 36415; 36600; 71046; 71275; 80048; 80053; 82805; 83605; 83735; 83880; 84484; 85025; 85027; 85379; 85610; 85730; 87040; 87635; 93005; 93306; 94640; 94760; 96374; 99285

== ENCOUNTER → 2023-01-17 | Outpatient (CLI) | payer BC ==
--- NOTE | 2023-01-17 22:32 | CT ---
EXAMINATION TYPE: CT chest wo con DATE OF EXAM: 01/17/2023 COMPARISON: None HISTORY: COPD. CT DLP: 1532.2 mGycm, Automated exposure control for dose reduction was used. CONTRAST: None TECHNIQUE: Axial images were obtained at 1 mm thick sections at 10 mm intervals. This will limit po rtions of the examination which may not be visualized within the [id number]. Images were obtained in the prone and supine views. FINDINGS: Portion of the thyroid visualized is normal. Mild emphysematous changes are evident. There may be some mild peribronchial thickening present. No bronchiectasis is evident. No suspicious consolidation or masses. No pulmonary fibrosis. Small are a of pneumonitis may be within the posterior lateral left lung No enlarged mediastinal or hilar adenopathy is evident. Multiple scattered small lymph nodes are in the mediastinum. The ascending aorta diameter at the level of the main pulmonary artery is 3.7 cm. The main pulmonary artery diameter at the bifurcation is 2.8 cm. Coronary calcification is present. Limited CT sections are obtained through the upper abdomen. Abdomen is essentially unremarkable. IMPRESSIONS: 1. Findings suggestive for mild emphysematous change. Some chronic bronchitis may be present as well. 2. Small area of pneumonitis in the peripheral posterior lateral left lung in the supine view appears to be related atelectasis and resolves on the prone views
== END | disposition home or self-care (01) ==
LOC: RADCTMAIN 13:01
PROVIDERS: ATTEND Internal Medicine
DX: J44.9 Chronic obstructive pulmonary disease, unspecified (principal); J18.9 Pneumonia, unspecified organism; J98.11 Atelectasis
CPT/HCPCS: 71250

== ENCOUNTER 2023-08-26 08:01 | Day surgery (SDC) | payer BC ==
[2023-08-26] MEDS: LACTATED RINGERS 1,000 ML IV SCH (08:19)
[2023-08-26 08:35] VITALS: TEMP 97.5
[2023-08-26] MEDS ORDERED: LIDOCAINE 1% INJ 10MG/ML (20 ML MDV) ONE (08:49)
[2023-08-26] MEDS ORDERED: PROPOFOL 10 MG/ML 20 ML VIAL IV ONE (08:49)
[2023-08-26 09:07] LABS: INR 1.5 (<1.2); Partial Thromboplastin Time 27.4 sec (22.0-30.0); Prothrombin Time 15.1 sec (10.0-12.5)
--- NOTE | 2023-08-26 09:12 | P.PCN ---
Date of Procedure: 08/26/23 Procedure(s) Performed: BRIEF HISTORY: Patient is a 63-year-old pleasant white male scheduled for an elective colonoscopy as a part of evaluation of prior history of colon polyps. Last colonoscopy was 3 years ago. PROCEDURE PERFORMED: Colonoscopy with snare polypectomy. History of colon polyps IV sedation per Anesthesia. PROCEDURE: After informed consent was obtained, the patient, was brought into the endoscopy unit. IV sedation was administered by Anesthesia under continuous monitoring. Digital rectal examination was normal. Initially the Olympus CF-160 flexible video colonoscope was then inserted in the rectum, gradually advanced into the cecum without any difficulty. Careful examination was performed as the scope was gradually being withdrawn. Ileocecal valve and the appendiceal orifice were visualized and appeared normal. Prep was excellent. Mucosa of the cecum, ascending colon, transverse colon, descending colon, sigmoid colon, and rectum appeared normal. In the distal rectum there was a 5 mm and 7 mm polyps removed by snare polypectomy. Scattered left sided diverticulosis seen. Retroflexion was performed in the rectum and small internal hemorrhoids were seen. The patient tolerated the procedure well. IMPRESSION: 5 mm and 7 mm distal rectal polyp status post polypectomy Scattered similar diverticulosis Small internal hemorrhoids. RECOMMENDATIONS: Findings of this examination were discussed with the patient is well as his family. He was advised to follow with the biopsy results. If the biopsies reveal adenoma he can have a repeat colonoscopy in 5 years.
[2023-08-26 09:46] VITALS: BP 127/73; PULSE 73
[2023-08-26 09:47] VITALS: RESP 17
== END 2023-08-26 10:01 | disposition home or self-care (01) ==
LOC: ORWHC2ENDO 08:01
PROVIDERS: ATTEND Internal Medicine Gastroenterology
DX: Z12.11 Encounter for screening for malignant neoplasm of colon (principal); K62.1 Rectal polyp; K57.30 Diverticulosis of large intestine without perforation or abscess without bleeding; K64.8 Other hemorrhoids; I48.91 Unspecified atrial fibrillation; I10 Essential (primary) hypertension; E78.5 Hyperlipidemia, unspecified; J44.9 Chronic obstructive pulmonary disease, unspecified; G40.909 Epilepsy, unspecified, not intractable, without status epilepticus; F32.A Depression, unspecified; Z79.01 Long term (current) use of anticoagulants; Z79.51 Long term (current) use of inhaled steroids; Z90.89 Acquired absence of other organs; Z95.0 Presence of cardiac pacemaker; Z98.890 Other specified postprocedural states; Z79.899 Other long term (current) drug therapy; Z86.010 Personal history of colon polyps; Z88.0 Allergy status to penicillin
CPT/HCPCS: 88305; 85610; 85730; 45385; J2001; J2704